=== PATIENT | male | born 1955 | race African-American/Black ===

== ENCOUNTER 2017-09-19 08:57 | Emergency (ER) | payer MEDICARE ==
[2017-09-19 10:04] LABS: #Basophils 0.1 thou/uL (0.0-0.2); #Eosinphils 0.1 thou/uL (0.0-0.7); #Lymphocytes 2.2 thou/uL (1.20-3.40); #Monocytes 0.5 thou/uL (0.11-0.59); #Neutrophils 3.9 thou/uL (1.40-6.50); %Eosinophils 1.3 % (0.0-10.0); %Lymphocytes 31.9 % (21.0-51.0); %Monocytes 7.8 % (0.0-10.0); Hemoglobin 16.4 g/dL (14.0-18.0); Mean Corpuscular HGB CONC 32.7 g/dL (32.0-36.0); Mean Corpuscular Hemoglobin 29.2 pg (27.0-31.0); Mean Corpuscular Volume 89.2 fl (80.0-94.0); Mean Platelet Volume 6.7 fL (7.4-10.4); Platelet Count 339 thou/uL (130-400); RBC Distribution Width 13.3 % (11.5-14.5); Red Blood Cell (RBC) Count 5.61 mill/uL (4.70-6.10); White Blood Cell (WBC) Count 6.8 thou/uL (4.8-10.8)
[2017-09-19 10:29] LABS: CKMB 2.1 ng/mL (0-6.6); Troponin I Less than 0.010 ng/mL (< 0.028)
[2017-09-19 11:19] LABS: ALT (SGPT) 11 U/L (8-55); AST (SGOT) 15 U/L (5-34); Albumin 4.3 g/dL (3.4-4.8); Alkaline Phosphatase 70 U/L (40-150); Anion Gap 13 mmol/L (10-20); BUN (Urea Nitrogen) 12 mg/dL (8.4-25.7); Bilirubin, Total 0.6 mg/dL (0.2-1.2); Calc. Creatinine Clearance 0 mL/min (70-130); Calcium 9.8 mg/dL (7.8-10.44); Carbon Dioxide 22 mmol/L (23-31); Chloride 106 mmol/L (98-107); Estimated GFR-MDRD Greater than 90; Globulin 3.6 g/dL (2.4-3.5); Glucose 125 mg/dL (80-115); Magnesium 2.4 mg/dL (1.6-2.6); Potassium 3.8 mmol/L (3.5-5.1); Protein, Total 7.9 g/dL (5.8-8.1); Sodium 137 mmol/L (136-145)
--- NOTE | 2017-09-19 12:02 | MRI ---
MRI LUMBAR SPINE WITHOUT CONTRAST: Date: 09/19/17 HISTORY: Low back pain radiating down left leg. FINDINGS: The vertebral body heights and marrow signal are maintained. The conus medullaris ends at L1 level. T here are facet hypertrophic changes at L4-5 and L5-S1 levels. A left paracentral disc protrusion is s een at L4-5 level causing impingement of the anterior thecal sac and the nerve root in the left later al recess. There is bilateral neural foraminal stenosis at L4-5 (left greater than right) and L5-S1 l evel (right greater than left). The paraspinal musculature is normal. IMPRESSION: 1. Lumbar spondylosis. 2. Left paracentral disc protrusion at L4-5 level causing impingement of the anterior thecal sac and the nerve root in the left lateral recess. 3. Bilateral neural foraminal stenosis at L4-5 level (left greater than right) and L5-S1 level (righ t greater than left). POS: [facility]
[2017-09-19 14:33] LABS: Bilirubin Negative (Negative); Blood, Urine Negative (Negative); Clarity CLEAR (Clear); Glucose, Urine (Dipstick) >=1000 mg/dL (Negative); Leukocyte Negative (Negative); Nitrite Negative (Negative); Protein, Urine (Dipstick) Negative (Neg-Trace); Specific Gravity, Urine 1.025 (1.002-1.036)
[2017-09-19] MEDS ORDERED: ALPRAZolam 0.5 MG TAB ONE (15:08)
== END 2017-09-19 15:16 | disposition home or self-care (01) ==
LOC: ERS 08:57
DX: M54.16 Radiculopathy, lumbar region (principal); E10.9 Type 1 diabetes mellitus without complications; E78.2 Mixed hyperlipidemia; I10 Essential (primary) hypertension; M19.90 Unspecified osteoarthritis, unspecified site; I25.10 Atherosclerotic heart disease of native coronary artery without angina pectoris; F32.9 Major depressive disorder, single episode, unspecified; F41.9 Anxiety disorder, unspecified; F43.10 Post-traumatic stress disorder, unspecified; F17.210 Nicotine dependence, cigarettes, uncomplicated; I25.2 Old myocardial infarction; G89.29 Other chronic pain; Z71.6 Tobacco abuse counseling
CPT/HCPCS: 36415; 72148; 80053; 81003; 82553; 83735; 84484; 85025; 93005; 96374; 99406; J2270

== ENCOUNTER 2017-10-01 13:44 | Day surgery (SDC) | payer MEDICARE ==
[~2017-10-01 13:44] MED LIST: ISOVUE-370 76%-LOCM 1 ML ONE
[2017-10-01] MEDS ORDERED: Ondansetron ODT 4 MG TAB ONE (14:48)
[2017-10-01 14:59] LABS: Bilirubin Negative (Negative); Blood, Urine Negative (Negative); Clarity CLEAR (Clear); Glucose, Urine (Dipstick) >=1000 mg/dL (Negative); Leukocyte Negative (Negative); Nitrite Negative (Negative); Protein, Urine (Dipstick) Negative (Neg-Trace); Specific Gravity, Urine 1.029 (1.002-1.036); pH, Urine 6.5 (5.0-9.0)
[2017-10-01] MEDS ORDERED: HYDROmorphone 0.5 MG/0.5 ML SYRINGE ONE ×2 (15:38→18:33)
[2017-10-01] MEDS ORDERED: Succinylcholine Chloride 20 MG/ML 10 ml SYRINGE FS ONE (15:41)
[2017-10-01] MEDS ORDERED: Propofol 200 MG/20 ML VIAL ONE (15:41)
[2017-10-01] MEDS ORDERED: Metoprolol Tartrate 5 MG/5 ML VIAL ONE (15:41)
[2017-10-01] MEDS ORDERED: Ondansetron HCl/PF 4 MG/2 ML Vial ONE ×2 (15:41→17:00)
[2017-10-01] MEDS ORDERED: Glycopyrrolate 0.2 MG/ML 5 ML SYRINGE ONE (15:41)
[2017-10-01] MEDS ORDERED: Ketorolac Tromethamine 30 MG/ML VIAL ONE ×2 (15:41→20:12)
[2017-10-01] MEDS ORDERED: Lidocaine 1% PF 5 ML VIAL ONE (15:41)
[2017-10-01 16:05] LABS: ALT (SGPT) 10 U/L (8-55); AST (SGOT) 12 U/L (5-34); Albumin 4.1 g/dL (3.4-4.8); Alkaline Phosphatase 66 U/L (40-150); Anion Gap 11 mmol/L (10-20); BUN (Urea Nitrogen) 9 mg/dL (8.4-25.7); Bilirubin, Total 0.4 mg/dL (0.2-1.2); Calc. Creatinine Clearance 0 mL/min (70-130); Calcium 9.5 mg/dL (7.8-10.44); Carbon Dioxide 22 mmol/L (23-31); Chloride 106 mmol/L (98-107); Estimated GFR-MDRD Greater than 90; Globulin 3.3 g/dL (2.4-3.5); Glucose 150 mg/dL (80-115); Lipase 39 U/L (8-78); Potassium 3.7 mmol/L (3.5-5.1); Protein, Total 7.4 g/dL (5.8-8.1); Sodium 135 mmol/L (136-145)
[2017-10-01 16:11] LABS: #Lymphocytes 1.2 thou/uL (1.20-3.40); #Monocytes 0.4 thou/uL (0.11-0.59); #Neutrophils 7.6 thou/uL (1.40-6.50); %Basophils 0.5 % (0.0-1.0); %Eosinophils 0.3 % (0.0-10.0); %Lymphocytes 12.5 % (21.0-51.0); %Monocytes 4.2 % (0.0-10.0); %Neutrophils 82.5 % (42.0-75.0); Mean Corpuscular HGB CONC 33.8 g/dL (32.0-36.0); Mean Corpuscular Hemoglobin 29.5 pg (27.0-31.0); Mean Corpuscular Volume 87.3 fl (80.0-94.0); Mean Platelet Volume 6.4 fL (7.4-10.4); Platelet Count 424 thou/uL (130-400); RBC Distribution Width 12.9 % (11.5-14.5); Red Blood Cell (RBC) Count 4.75 mill/uL (4.70-6.10); White Blood Cell (WBC) Count 9.2 thou/uL (4.8-10.8)
[2017-10-01 16:18] LABS: INR-International Normal Ratio 1.1; PTT 31.7 SEC (22.9-36.1); Prothrombin Time 13.8 SEC (12.0-14.7)
--- NOTE | 2017-10-01 16:18 | RAD ---
PORTABLE CHEST: 10/01/17 HISTORY: Chest pain. The lungs are clear. Heart and mediastinum are unremarkable. Postop sternotomy changes noted. Vascula r markings normal. IMPRESSION: No acute process identified. POS: [facility]
[2017-10-01 16:24] LABS: CKMB 1.3 ng/mL (0-6.6); Troponin I Less than 0.010 ng/mL (< 0.028)
[2017-10-01 16:35] LABS: Magnesium 2.2 mg/dL (1.6-2.6)
--- NOTE | 2017-10-01 17:18 | CT ---
CT ANGIO CHEST AND ABDOMEN FOLLOWING AORTOGRAM PROTOCOL WITH IV CONTRAST: 10/01/17 Multiple axial tomograms obtained through chest and abdomen with aortogram protocol with multiplanar reconstructions and 3D postprocessing. HISTORY: Abdominal pain. Assess for aortic dissection. FINDINGS: Thoracic aorta is unremarkable with no evidence of aneurysmal dilatation. No evidence of thoracic aor tic dissection. Abdominal aorta is normal caliber. There is moderate atherosclerotic changes in the abdominal aorta primarily involving the mid and distal abdominal aorta. Calcified plaque and soft plaque produces mil d luminal narrowing in the distal abdominal aorta extending to the bifurcation. No evidence of dissec tion. Diffuse atherosclerotic disease in the left common iliac artery does result in hemodynamically significant stenosis in the mid left common iliac artery (greater than 50% diameter). Lungs are well aerated. No evidence of effusion or infiltrate in the lung van. The mediastinum unremarkable. The proximal pulmonary arteries are well opacified and there is no evidence of proximal pulmonary embolus . Liver, spleen, pancreas unremarkable. Stomach is distended. The adrenal glands reveal small bilateral adrenal nodules, 1.5 cm on the right and 1.2 cm on the left . These small nodules are indeterminate on this single phase study. The kidneys are unremarkable. Small bowel loops are unremarkable as visualized. Evidence of a dilated fluid filled appendix which is incompletely imaged. Review of the aortic branches showed no evidence of stenosis at the origin of the celiac artery or santiago perior mesenteric artery. Mild atherosclerotic changes of the proximal right renal artery without significant stenosis. There is atherosclerotic changes in the proximal left renal artery. There is mild diffuse narrowing o f the mid left renal artery resulting in mild to moderate stenosis. This appears to be less than 50% diameter. IMPRESSION: 1. Atherosclerotic changes in the abdominal aorta as described above with mild luminal narrowing . No evidence of dissection. 2. Hemodynamically significant stenosis in the left common iliac artery. 3. Mild to moderate stenosis in the left mid renal artery. 4. Evidence of dilated fluid filled appendix which is incompletely imaged. See follow up CT abdo men/pelvis. 5. Bilateral adrenal nodules are seen. these are indeterminate on this single phase study. A fol lowup noncontrast abdomen CT is suggested in six months to assess stability of these small adrenal no dules. Discussed with Dr. Fierro POS: [facility]
[2017-10-01] MEDS ORDERED: Promethazine HCl 25 MG/ML VIAL ONE (17:24)
[2017-10-01] MEDS ORDERED: Piperacillin/Tazobactam 3.375 GM in Sodium Chloride 0.9% 100 ML IVPB SCH (17:30)
--- NOTE | 2017-10-01 18:12 | CT ---
CT ABDOMEN AND PELVIS WITHOUT CONTRAST: 10/01/17 Multiple axial tomograms obtained through the abdomen and pelvis without IV enhancement. HISTORY: Abdominal pain, nausea and vomiting. CT aortogram showed evidence of a dilated appendix which is incompletely evaluated. This exam is perf ormed for further evaluation. FINDINGS: Liver, spleen, pancreas, kidneys are unremarkable. Small bowel loops appear normal. There is a dilated elongated appendix identified. The appendix extends over a 10 cm length and measur es up to 17 mm. There are numerous filling defects within this dilated appendix. One of which distall y shows mild calcification density. There is no evidence of significant periappendiceal inflammation. There is no evidence of appendiceal rupture or abscess. No significant periappendiceal fluid. Colon is otherwise unremarkable. Images through the pelvis show a distended bladder which is unremark able. IMPRESSION: Dilated fluid filled elongated appendix with numerous filling defects within this enlarged appendix. No significant periappendiceal inflammation is identified. Findings discussed with Dr. Fierro. POS: [facility]
[2017-10-01] MEDS ORDERED: Bupivacaine HCl 0.5%/Epinephrine 1:200,000/PF 30 ml Vial ONE (18:37)
[2017-10-01] MEDS ORDERED: Fentanyl 100 MCG/2 ML VIAL ONE (18:44)
[2017-10-01] MEDS ORDERED: Ondansetron ODT 4 MG TAB PO PRN (19:10)
[2017-10-01] MEDS ORDERED: Promethazine HCl 25 MG/ML VIAL IM PRN (19:10)
[2017-10-01] MEDS ORDERED: HumaLOG 300 UNITS/3 ML VIAL SC PRN (19:10)
[2017-10-01] MEDS ORDERED: Ketorolac Tromethamine 30 MG/ML VIAL IVP PRN ×2 (19:10→19:15)
[2017-10-01] MEDS ORDERED: Lorazepam 2 MG/ML VIAL SLOW IVP PRN ×2 (19:10)
[2017-10-01] MEDS ORDERED: Ondansetron HCl/PF 4 MG/2 ML Vial IVP PRN ×2 (19:10)
[2017-10-01] MEDS ORDERED: Dextrose 5% in Water 1,000 ML IV PRN (19:10)
[2017-10-01] MEDS ORDERED: hydrALAZINE 20 MG/ML VIAL SLOW IVP PRN (19:10)
[2017-10-01] MEDS ORDERED: Dextrose 50% Abboject 50 ML SYRINGE SLOW IVP PRN (19:10)
[2017-10-01] MEDS ORDERED: Promethazine HCl 25 MG/ML VIAL SLOW IVP PRN (19:10)
[2017-10-01] MEDS ORDERED: Morphine 4 MG/ML Carpuject IVP PRN (19:10)
[2017-10-01] MEDS ORDERED: Acetaminophen 500 MG TAB PO PRN (19:15)
[2017-10-01] MEDS ORDERED: Acetaminophen 1,000 MG in Premix Bag 1 BAG IVPB PRN (19:15)
[2017-10-01] MEDS ORDERED: Ibuprofen 100 MG/5 ML UDCUP PO PRN (19:15)
[2017-10-01] MEDS ORDERED: traMADol HCl 50 MG TAB PO PRN (19:15)
[2017-10-01] MEDS ORDERED: Nitroglycerin 0.4 MG TAB (25 Tab Bottle) SL PRN (19:17)
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
--- NOTE | 2017-10-01 20:16 | OP ---
DATE OF PROCEDURE: 10/01/2017 PREOPERATIVE DIAGNOSIS: Acute appendicitis. POSTOPERATIVE DIAGNOSIS: Acute appendicitis. PROCEDURE PERFORMED: Laparoscopic video appendectomy. SURGEON: Kunal Villalpando M.D. ANESTHESIA: General. Local 0.5% Marcaine, 30 mL, mixed with 1% Xylocaine with epinephrine, 20 mL. PROCEDURE IN DETAIL: The patient was taken to the operating room where under general anesthesia, Fol ey catheter placed at the beginning of the procedure and removed at the end. Abdomen clipped of hair , prepared with ChloraPrep, draped in routine fashion. Local anesthetic infiltrated into skin and santiago bcutaneous tissue about each port site. Infraumbilical incision was made and pneumoperitoneum to 15 mmHg obtained with the Veress needle, replacing it with a 5 port and video laparoscope inserted. Rig ht lateral subcostal incision made and a 5 port placed. Suprapubic incision made and a [address] Appendix was very taut and distended. Mesoappendix was taken down with the LigaSure. The stump of the appendix divided with Endo-MELL blue load stapler. Stapled cecal stump was hemostatic and secu re as the appendix placed in Endobag and removed. Abdominal cavity irrigated and irrigant evacuated. Good hemostasis ensured. Irrigant and pneumoperitoneum evacuated. Suprapubic fascia approximated with 0 Vicryl UR needle. All skin incisions approximated with interrupted subdermal 4-0 Monocryl and DermaGlue applied.
[2017-10-01] MEDS: ALPRAZolam 0.5 MG TAB PO SCH (22:05)
[2017-10-01] MEDS: Famotidine 20 MG TAB PO SCH (22:05)
[2017-10-01] MEDS: Metoprolol Tartrate 100 MG TAB PO SCH (22:05)
[2017-10-01] MEDS: Lactated Ringer's 1,000 ML IV SCH (22:06)
[2017-10-01 22:55] VITALS: BMI 29.8
[2017-10-02] MEDS: traMADol HCl 50 MG TAB PO PRN ×2 (03:49→14:10)
[2017-10-02 05:16] LABS: #Lymphocytes 1.7 thou/uL (1.20-3.40); #Monocytes 0.9 thou/uL (0.11-0.59); #Neutrophils 11.1 thou/uL (1.40-6.50); %Basophils 0.3 % (0.0-1.0); %Eosinophils 0.1 % (0.0-10.0); %Lymphocytes 12.1 % (21.0-51.0); %Monocytes 6.8 % (0.0-10.0); %Neutrophils 80.7 % (42.0-75.0); Hemoglobin 13.9 g/dL (14.0-18.0); Mean Corpuscular HGB CONC 33.6 g/dL (32.0-36.0); Mean Corpuscular Hemoglobin 29.9 pg (27.0-31.0); Mean Platelet Volume 6.7 fL (7.4-10.4); Platelet Count 384 thou/uL (130-400); RBC Distribution Width 12.9 % (11.5-14.5); Red Blood Cell (RBC) Count 4.64 mill/uL (4.70-6.10); White Blood Cell (WBC) Count 13.7 thou/uL (4.8-10.8)
[2017-10-02 05:29] LABS: Anion Gap 16 mmol/L (10-20); BUN (Urea Nitrogen) 9 mg/dL (8.4-25.7); Calc. Creatinine Clearance 115 mL/min (70-130); Carbon Dioxide 22 mmol/L (23-31); Chloride 105 mmol/L (98-107); Estimated GFR-MDRD Greater than 90; Glucose 68 mg/dL (80-115); Potassium 4.1 mmol/L (3.5-5.1); Sodium 139 mmol/L (136-145)
[2017-10-02] MEDS: Lactated Ringer's 1,000 ML IV SCH (06:56)
[2017-10-02] MEDS: ALPRAZolam 0.5 MG TAB PO SCH ×2 (06:57→14:10)
[2017-10-02] MEDS ORDERED: Amlodipine 5 MG TAB PO SCH (09:00)
[2017-10-02] MEDS ORDERED: Clopidogrel Bisulfate 75 MG TAB PO SCH (09:00)
[2017-10-02] MEDS ORDERED: Enoxaparin Sodium 40 MG/0.4 ML SYRINGE SC SCH (09:00)
[2017-10-02] MEDS ORDERED: Polyethylene Glycol 3350 17 GM Packet PO SCH (09:00)
[2017-10-02] MEDS ORDERED: Lisinopril 20 MG TAB PO SCH (09:00)
[2017-10-02] MEDS ORDERED: Isosorbide Mononitrate 20 MG TAB PO SCH (09:00)
[2017-10-02] MEDS: Famotidine 20 MG TAB PO SCH (09:01)
[2017-10-02] MEDS: Metoprolol Tartrate 100 MG TAB PO SCH (09:01)
[2017-10-02] MEDS ORDERED: Ibuprofen 600 MG TAB PO PRN (10:19)
[2017-10-02 12:28] VITALS: TEMP 97.9
--- NOTE | 2017-10-02 17:00 | PRG ---
DATE OF SERVICE: 10/02/2017 SUBJECTIVE: Wong Cruz is doing well today. He was kept overnight because of lack of transport ation home and fetch a large appendicitis. Overnight, he has done well. He is afebrile. He is tole rating his diet. OBJECTIVE: LUNGS: Clear to auscultation. CARDIAC: Regular rate and rhythm without murmur or gallop. ABDOMEN: Soft, nontender, no masses. Surgical wounds look good. ASSESSMENT AND PLAN: Doing well post laparoscopic appendectomy. Plan to discharge home today. Tyle nol, ibuprofen and Motrin as needed for pain. Follow up in my office in 2-3 weeks. Diet and activit y as tolerated.
[2017-10-02 17:06] VITALS: BP 109/70
--- NOTE | 2017-10-02 21:38 | DIS ---
DATE OF ADMISSION: 10/01/2017 DATE OF DISCHARGE: 10/02/2017 DISCHARGE DIAGNOSES: Acute appendicitis, lack of transportation home. HISTORY: A 61-year-old male presenting with lower abdominal pain, presented in the emergency room. CAT scan and exam shows appendicitis, again intravenous fluids, antibiotics and laparoscopic appendec moise performed at the late hour. Though we perform this, he did not have transportation home. He wa s kept overnight. He has been discharged home today after being observed overnight. His CBC and bas e met are normal. He will be discharged home to resume his home medications. Follow up in my office in 2-3 weeks.
== END 2017-10-02 16:55 | disposition home or self-care (01) ==
LOC: ERS 13:44 → SDC/OP 19:07 → SURG B 20:21 → SDC/OP 10-02 16:55
PROVIDERS: ATTEND Specialist
PROC: 0DTJ4ZZ Resection of Appendix, Percutaneous Endoscopic Approach (ICD-10-PCS; principal; 2017-10-01)
DX: K35.80 Unspecified acute appendicitis (principal); F17.210 Nicotine dependence, cigarettes, uncomplicated; I10 Essential (primary) hypertension; E11.9 Type 2 diabetes mellitus without complications; F43.10 Post-traumatic stress disorder, unspecified; Z95.1 Presence of aortocoronary bypass graft; Z88.8 Allergy status to other drugs, medicaments and biological substances; Z98.890 Other specified postprocedural states
CPT/HCPCS: 36415; 36416; 71045; 71275; 74176; 80048; 80053; 81003; 82553; 83605; 83690; 83735; 84484; 85025; 85610; 85730; 86850; 86900; 86901; 87040; 87086; 93005; 96361; 96374; 96375; 96376; 99406; J0131; J0670; J1170; J1650; J1885; J2001; J2405; J2543; J2550; J2704; J3010; J7050; Q0162

== ENCOUNTER 2018-07-17 10:35 | Emergency (ER) | payer MEDICARE ==
[2018-07-17] MEDS ORDERED: HYDROcodone/Acetaminophen 10/325 mg Tablet ONE (11:36)
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
[2018-07-17] MEDS ORDERED: ALPRAZolam 0.25 MG TAB ONE (13:22)
== END 2018-07-17 13:29 | disposition home or self-care (01) ==
LOC: ERS 10:35
DX: S16.1XXA Strain of muscle, fascia and tendon at neck level, initial encounter (principal); S39.012A Strain of muscle, fascia and tendon of lower back, initial encounter; F41.9 Anxiety disorder, unspecified; F43.10 Post-traumatic stress disorder, unspecified; I25.2 Old myocardial infarction; F17.210 Nicotine dependence, cigarettes, uncomplicated; E10.9 Type 1 diabetes mellitus without complications; E78.1 Pure hyperglyceridemia; F32.9 Major depressive disorder, single episode, unspecified; Z79.82 Long term (current) use of aspirin; Z79.891 Long term (current) use of opiate analgesic; V43.62XA Car passenger injured in collision with other type car in traffic accident, initial encounter
CPT/HCPCS: 70450; 72125; 72128; 72131; 99406

== ENCOUNTER 2020-07-05 02:59 | Inpatient (IN) | payer MEDICARE ==
[2020-07-05 03:44] VITALS: BMI 28.3
[2020-07-05] MEDS ORDERED: Acetaminophen 650 MG Suppository PR PRN (05:19)
[2020-07-05] MEDS ORDERED: Acetaminophen 325 MG TAB PO PRN (05:19)
[2020-07-05] MEDS ORDERED: Ondansetron ODT 4 MG TAB PO PRN (05:19)
[2020-07-05] MEDS ORDERED: Nitroglycerin 0.4 MG TAB (25 Tab Bottle) SL PRN (05:19)
[2020-07-05] MEDS ORDERED: Ondansetron PF 4 MG/2 ML Vial IVP PRN (05:19)
[2020-07-05] MEDS ORDERED: Calcium Carbonate 500 MG ChewTAB PO PRN (05:19)
--- NOTE | 2020-07-05 05:27 | PDOC.HHP ---
Hospitalist HPI - History of Present Illness chest pain History of Present Illness: Case of an 64y/o male with pmhx of cad s/p cabg x6, htn DM, hld ptsd and chronic back pain who comes to hospital transfer [facility] due to chest pain. patient states he was on his usual states of health until today when he was watching tv and started with restrosternal chest pain, pain described as stabbing 8/10 non radiating associated with palpitation diaphoresis and sob for which he went to hospital for evaluation due to increased heart score, cardiac hx and multiple risk factors patient was sent for further evaluation. patients pain is atypical refers worse with movement and somewhat reproducible to palpati on. patient has a hx of panic attacks secondary to ptsd and recently has been worried with [facility]. patient does reports pain did improve with the application of nitro patch Hospitalist ROS - Review of Systems All other systems reviewed; all pertinent +/- noted in HPI/Subj Hospitalist History - Past Surgical History Past Surgical History: reports: CABG - Family History Family History: reports: diabetes mellitus, hyperlipidemia, hypertension - Social History Smoking Status: Current every day smoker Alcohol: reports: None Drugs: reports: none - Exam General Appearance: NAD, awake alert Eye: PERRL, anicteric sclera ENT: normocephalic atraumatic, no oropharyngeal lesions Neck: supple, symmetric, no JVD Heart: RRR, no murmur, no gallops Respiratory: CTAB, no wheezes, no rales, no ronchi Gastrointestinal: soft, non-tender, non-distended, normal bowel sounds Extremities: no cyanosis, no clubbing, no edema Skin: normal turgor, no lesions, no rashes Neurological: cranial nerve grossly intact, normal sensation to touch, no weakness Musculoskeletal: normal tone, normal strength, no muscle wasting Psychiatric: normal affect, normal behavior, A&O x 3 Hospitalist H&P A/P - Problem (1) Chest pain Code(s): R07.9 - CHEST PAIN, UNSPECIFIED Status: Acute (2) Diabetes Code(s): E11.9 - TYPE 2 DIABETES MELLITUS WITHOUT COMPLICATIONS Status: Acute (3) HTN (hypertension) Code(s): I10 - ESSENTIAL (PRIMARY) HYPERTENSION Status: Acute (4) HLD (hyperlipidemia) Code(s): E78.5 - HYPERLIPIDEMIA, UNSPECIFIED Status: Acute (5) PTSD (post-traumatic stress disorder) Code(s): F43.10 - POST-TRAUMATIC STRESS DISORDER, UNSPECIFIED Status: Acute - Plan Plan: 64y/o male with the stated pmhx who presents with chest pain chest pain - pt with extensive heart disease - multiple risk factors - ekg with q waves and tachycardia, no st ischemic changes - cxr cardiac silhouette WNL - initial troponin negative, will trend - 2d echo - cardio eval - on optimal cad medication with statin, acei, beta ivan and dual antiplat elets w asa+ plavix dm acc+ss htn / hld - continue home meds for chronic conditions
[2020-07-05] MEDS ORDERED: Dextrose 5% in Water 1,000 ML IV PRN (05:36)
[2020-07-05] MEDS ORDERED: HumaLOG 300 UNITS/3 ML VIAL SC PRN (05:36)
[2020-07-05] MEDS ORDERED: Dextrose 50% Abboject 50 ML SYRINGE SLOW IVP PRN (05:36)
[2020-07-05 07:25] LABS: Troponin I 0.011 ng/mL (< 0.028)
[2020-07-05] MEDS: Clopidogrel Bisulfate 75 MG TAB PO SCH (08:10)
[2020-07-05] MEDS: Aspirin Chewable 81 MG TAB PO SCH (08:10)
[2020-07-05] MEDS: Atorvastatin Calcium 40 MG TAB PO SCH (08:11)
[2020-07-05] MEDS: Enoxaparin Sodium 40 MG/0.4 ML SYRINGE SC SCH (08:11)
[2020-07-05] MEDS ORDERED: Lisinopril 5 MG TAB PO SCH (09:00)
[2020-07-05] MEDS ORDERED: Metoprolol Tartrate 25 MG TAB PO SCH ×2 (09:00→10:00)
--- NOTE | 2020-07-05 10:59 | CON ---
DATE OF CONSULTATION: 07/05/2020 INDICATION FOR CONSULTATION: A 64-year-old patient with history of three-vessel bypass surgery in 2013 and also stents prior to that, who was admitted with chest pain. HISTORY OF PRESENT ILLNESS: This is a very pleasant 64-year-old gentleman, who underwent bypass surgery with three-vessel bypass with a saphenous vein graft to diagonal, obtuse marginal branch, and posterior descending artery in 2013. Previous to that in 2012, he underwent angioplasty and stent placement to the right coronary artery and to the left anterior descending artery by Dr. Fagan. He said his cardiac problems started back in 1998, at which time he said he had his 1st myocardial infarction. He said since that time he has had two to three different myocardial infarctions. He had been doing relatively well. He has been seen in the office on followup. Most recently, he was seen in the office in February of 2020. It does not appear that he has had any echocardiograms or cardiac stress test since his bypass surgery and had been doing relatively well until about 6 months ago when he notes he has been started having some difficulties. First he notes, he has some difficulties in walking, which he has had for more than 10 years, but seems to be getting worse, where he said he feels like his legs just give way, but on evening he said he was at home and started developing chest pressure which was associated with some diaphoresis, shortness of breath, and lightheadedness. He did not have any nitroglycerin to take. Eventually, he went to the emergency room in [place]. He then was transferred by ambulance to [facility]. He said in the ambulance, he was given nitroglycerin. He stated in the emergency room in [place], he was given Xanax. When he arrived here, he said he was still having chest discomfort, was on a direct admit to the floor. When he arrived here, shortly thereafter, eventually his pain just resolved. His cardiac enzymes are negative for myocardial infarction. EKG does not show any acute ST-segment changes and he has had no further pain since being admitted to the hospital. On his previous cardiac catheterization prior to undergoing bypass surgery, it was stated that he did have a 30% in-stent restenoses of the left anterior descending artery, but no bypass surgery was performed on this vessel either by saphenous vein graft or left internal mammary artery. PAST MEDICAL HISTORY: Significant for coronary artery disease as noted above, history of peripheral vascular disease. He has significant iliac disease noted in the past and was advised to undergo arteriograms or Doppler evaluation. This has not yet been performed apparently. He also has a history of post traumatic stress syndrome. He has anxiety, has hypercholesterolemia, hypertension, has had a history of hypercholesterolemia, and tobacco abuse. SOCIAL HISTORY: He continues to smoke cigarettes about six a day. He denies any significant alcohol use or illicit drug use. ALLERGIES: NONE. MEDICATIONS: Prior to admission included; 1. Aspirin 81 mg a day. 2. Imipramine. 3. Lipitor 40 mg a day. 4. Plavix 75 mg. 5. Potassium daily. 6. Colchicine 0.6 mg b.i.d. 7. Xanax. 8. Lisinopril 5 mg a day. 9. Metoprolol 25 mg b.i.d. 10. [place]. REVIEW OF SYSTEMS: A 12-point review of systems is positive for the lower extremity pains and numbness and also weakness. He also says he has occasional edema in the lower extremities. He complains his fingers tingle. He wears glasses. He denied any other GI complaints. No pulmonary complaints. No history of seizures or syncope. FAMILY HISTORY: Positive for coronary artery disease in his father and grandfather who had myocardial infarction in their 60s. There is also some history of diabetes, hyperlipidemia, and hypertension. PHYSICAL EXAMINATION: GENERAL: Reveals a well-developed, well-nourished gentleman, who is in no acute distress at this time. He is alert, he is oriented. VITAL SIGNS: Show a blood pressure of 160/79, heart rate is 90 and shows a sinus rhythm. He is afebrile. Respiratory rate 16. HEENT: Shows the head to be normocephalic and atraumatic. Carotid pulses are present. He has bilateral carotid bruits. CHEST: Relatively clear to auscultation. He did have some very minimal late expiratory wheezing, but no rales or rhonchi were appreciated. CARDIOVASCULAR: He has a regular rate and rhythm. There were no gross murmurs, heaves, thrills, bruits, or rubs noted. He has a well-healed midline surgical incision after median sternotomy. He has multiple scars from previous what appears to be lacerations on the chest and arm areas. ABDOMEN: Soft and nontender. Positive bowel sounds are present. He has iliac bruits noted. EXTREMITIES: Femoral pulses are very difficult to palpate, but he also has femoral bruits. I cannot palpate pulses in the lower extremities. His feet are warm however. There is no gross cyanosis noted and there is no lower extremity edema. NEUROLOGIC: The patient appears to be fully intact. There are no gross focal motor deficits noted. He appears to have normal strength and normal tone. DIAGNOSTIC STUDIES: EKG shows a normal sinus rhythm with no acute changes. LABORATORY DATA: Shows a sodium of 139, potassium 3.6, and BUN was 8 with a creatinine of 1.35. WBC was 8, hemoglobin was 15.6, and platelet count was 295,000. Also note his blood sugar was 103. Urinalysis showed 2+ bacteria. Cardiac enzymes were negative x3. IMPRESSION: 1. A 64-year-old gentleman with most likely acute coronary syndrome with no EKG changes or enzyme changes. Would advise he undergo stress testing for further evaluation since he has had no stress test in the last 5 years since bypass surgery. If the stress test is positive, he will need to undergo further evaluation by cardiac catheterization. 2. Peripheral vascular disease. He has diffused peripheral vascular disease. He continues to smoke. However, at some point in time, he will need to undergo arteriograms or should he need a cardiac catheterization, perhaps he can have an arteriogram performed at the same time. 3. Mild renal insufficiency with a creatinine of 1.35. This appears to be stable. 4. History of hypertension. The blood pressure is elevated at 160/79, his heart rate was 91. Based on this, we will increase the patient's beta blockers to 50 mg b.i.d. rather than 25. We will try to maximize his medications. 5. History of hypercholesterolemia. We will continue on statin medications we can obtain a cholesterol level if one has not been done in the last year. 6. History of tobacco abuse. He was strongly encouraged to stop smoking. 7. History of anxiety. He has been treated with Xanax. He will continue to be treated by the primary care service. At this time, we will order a stress test and will proceed based on the recommendations. He has also had an echocardiogram performed. We will evaluate and further recommendations may depend on the results of the echocardiogram as well as the stress test. Job ID: [id number]
[2020-07-05] MEDS: HYDROcodone/Acetaminophen 5/325 mg Tablet PO PRN ×2 (13:10→20:14)
[2020-07-05] MEDS: Metoprolol Tartrate 25 MG TAB PO SCH (20:15)
[2020-07-05] MEDS ORDERED: FLU VACC QS2020-21(65YR UP)/PF 240 MCG/0.7 ML SYRINGE IM ONE (21:00)
[2020-07-06] MEDS: HYDROcodone/Acetaminophen 5/325 mg Tablet PO PRN ×2 (04:44→10:30)
[2020-07-06] MEDS ORDERED: hydrALAZINE 20 MG/ML VIAL SLOW IVP SCH (04:45)
[2020-07-06 05:09] LABS: Cardiac Risk 3.4 (Less than 4.5)
--- NOTE | 2020-07-06 10:03 | PDOC.CPN ---
- Subjective Date: 07/06/20 Time: 09:15 Interval history: No overnight events, patient doing well this morning, he states that he is feeling better, he is getting his stress test this morning, he tolerated it well. He denies any chest pain or shortness of breath overnight or this morning. - Review of Systems General: denies: fever/chills, weight/appetite/sleep changes, night sweats, fatigue Respiratory: denies: cough, congestion, shortness of breath, exercise intolerance Cardiovascular: denies: chest pain, palpitation, edema, paroxysmal nocturnal dyspnea, orthopnea Gastrointestinal: denies: nausea, vomiting, diarrhea, constipation, abd pain, GI bleeding Musculoskeletal: denies: pain, tenderness, stiffness, swelling, arthritis/arthralgias Neurological: denies: numbness, syncope, seizure, weakness - Objective Allergies/Adverse Reactions: Allergies Allergy/AdvReac Type Severity Reaction Status Date / Time Corticosteroids AdvReac Intermediate Verified 07/05/20 03:38 (Glucocorticoids) Visit Medications: Current Medications Acetaminophen (Acetaminophen 650 Mg Suppository) 650 mg GA Q4H PRN PRN Reason: Headache/Fever/Mild Pain (1-3) Acetaminophen (Acetaminophen 325 Mg Tab) 650 mg PO Q4H PRN PRN Reason: Headache/Fever/Mild Pain (1-3) Hydrocodone Bitart/Acetaminophen (Hydrocodone/Acetaminophen 5/325 Mg Tablet) 1 tab PO Q4H PRN PRN Reason: Moderate Pain (4-6) Hydrocodone Bitart/Acetaminophen (Hydrocodone/Acetaminophen 5/325 Mg Tablet) 2 tab PO Q4H PRN PRN Reason: Severe Pain (7-10) Last Admin: 07/06/20 04:44 Dose: 2 tab Documented by: Aspirin (Aspirin Chewable 81 Mg Tab) 81 mg PO DAILY [facility] Last Admin: 07/05/20 08:10 Dose: 81 mg Documented by: Atorvastatin Calcium (Atorvastatin Calcium 40 Mg Tab) 40 mg PO DAILY [facility] Last Admin: 07/05/20 08:11 Dose: 40 mg Documented by: Calcium Carbonate (Calcium Carbonate 500 Mg Chewtab) 1,000 mg PO Q4H PRN PRN Reason: Heartburn or Indigestion Clopidogrel Bisulfate (Clopidogrel Bisulfate 75 Mg Tab) 75 mg PO DAILY [facility] Last Admin: 07/05/20 08:10 Dose: 75 mg Documented by: Dextrose/Water (Dextrose 50% Abboject 50 Ml Syringe) 25 gm SLOW IVP PRN PRN PRN Reason: Hypoglycemia Enoxaparin Sodium (Enoxaparin Sodium 40 Mg/0.4 Ml Syringe) 40 mg SC 0900 [facility] Last Admin: 07/05/20 08:11 Dose: 40 mg Documented by: Glucagon (Glucagon 1 Mg/Ml Vial) 1 mg IM PRN PRN PRN Reason: Hypoglycemia Dextrose/Water (D5w) 1,000 mls @ 0 mls/hr IV .Q0M PRN PRN Reason: Hypoglycemia Insulin Human Lispro (Humalog 300 Units/3 Ml Vial) 0 units SC .MILD SLIDING SCALE PRN PRN Reason: Mild Correctional Scale Metoprolol Tartrate (Metoprolol Tartrate 25 Mg Tab) 50 mg PO Q12HR [facility] Last Admin: 07/05/20 20:15 Dose: 50 mg Documented by: Nitroglycerin (Nitroglycerin 0.4 Mg Tab (25 Tab Bottle)) 0.4 mg SL Q5MIN PRN PRN Reason: Chest Pain Ondansetron HCl (Ondansetron Odt 4 Mg Tab) 4 mg PO Q6H PRN PRN Reason: Nausea/Vomiting Ondansetron HCl (Ondansetron Pf 4 Mg/2 Ml Vial) 4 mg IVP Q6H PRN PRN Reason: Nausea/Vomiting Vital Signs & Weight: Vital Signs Temp Pulse Resp BP Pulse Ox 07/06/20 07:44 98.4 F 73 18 140/66 95 07/06/20 06:17 72 139/64 07/06/20 04:00 98 F 71 16 180/79 H 98 07/06/20 01:21 99 Weight 193 lb 9.6 oz - Quality Measures Condition: Coronary Artery Disease CV meds: Beta Indra: Yes, Statin: Yes, ASA: Yes, Plavix/Effient/Brilinta: Yes - Labs Troponin/CKMB Troponin I 0.010 ng/mL (< 0.028) 07/05/20 10:21 - EKG Interpretation EKG Method: Telemetry EKG: sinus rhythm (HR 70's) - Assessment/Plan Assessment/Plan: 1; Likely acute coronary syndrome with no EKG changes or enzyme changes. Stress test this morning, we will await nuclear imaging. ECHO 07/05/2020 showed EF 45- 50%, suggestive of diastolic dysfunction, mild mitral regurgitation and trace tricuspid regurgitation. Based on results of stress test, we may need to proceed with cardiac catheterization 2. Peripheral vascular disease (PVD), he has diffuse PVD and continues to smoke 6 cigarets/ day, he is trying to stop. Long discussion with patient about smoking cessation. If he undergoes cardiac catheterization, he can have arteriogram performed at the same time. 3. Mild renal insufficiency Creatinine is 1.35, appears to be stable 4. History of hypertension: BP has been elevated during hospital stay, we increased Metoprolol yesterday, I will add Hydralazine d/t increased creatinine levels. We will maximize medications. 5. History of hypercholesterolemia. Fasting lipids this morning showed a LDL of 44. Well controlled. We will continue his Lipitor 40 mg PO 6. History of tobacco abuse: he continues to smoke 6 cigarets/day. Long discussion with patient about smoking cessation. 7. History of anxiety. He has been treated with Xanax, care provided by Primary care services for anxiety control. Stress test has been ordered, awaiting results at this time. Pt. seen and eval. by me. The stress test is negative for ischemia. he was scheduled for an arterial doppler eval. as an outpt. but failed to show for the study. due to his severe PVD, I will order the study while the pt. is here. I agree with the A/P by the RADIATION PROTECTION TECHNICIAN. esperanza
[2020-07-06] MEDS: Aspirin Chewable 81 MG TAB PO SCH (10:29)
[2020-07-06] MEDS: Clopidogrel Bisulfate 75 MG TAB PO SCH (10:29)
[2020-07-06] MEDS: Metoprolol Tartrate 25 MG TAB PO SCH ×2 (10:29→20:30)
[2020-07-06] MEDS ORDERED: hydrALAZINE 25 MG TAB PO SCH ×2 (10:30→21:00)
[2020-07-06] MEDS: Atorvastatin Calcium 40 MG TAB PO SCH (10:30)
[2020-07-06] MEDS: Enoxaparin Sodium 40 MG/0.4 ML SYRINGE SC SCH (10:30)
[2020-07-06 10:56] LABS: SARS-CoV-2 MS2 Positive; SARS-CoV-2 N Gene Negative; SARS-CoV-2 S Gene Negative; SARS-CoV-2 by NAA Not Detected (NotDetected); SARS-CoV-2 orf1ab Negative
[2020-07-06] MEDS ORDERED: ADENOSINE 60 MG/20 ML VIAL ONE (11:03)
--- NOTE | 2020-07-06 11:07 | NM ---
CARDIAC SPECT: CLINICAL HISTORY: 64-year-old male with chest pain, coronary artery disease, CABG, hypertension, diabetes, palpitations , shortness of breath, and smoker. TECHNIQUE: A myocardial perfusion scan was performed using the single isotope one day protocol with technetium-9 9m sestamibi. 10 mCi were injected intravenously for the rest exam followed by 31 mCi for the stress exam. Pharmacologic stress with Adenosine was monitored and interpreted by Dr. Blankenship. FINDINGS: There is a fixed defect in the inferolateral wall. No reversible defects are identified. GATED SPECT LVEF: 61%. WALL MOTION EXAM: Mild inferolateral wall hypokinesis. IMPRESSION: 1. No evidence of reversible ischemia. 2. Inferolateral wall scar. POS: TORO
[2020-07-06 12:23] LABS: SARS-CoV-2 IgG Ab Non-Reactive (NonReactive); SARS-CoV-2 IgG Index 0.01 S/CO (< 1.40)
[2020-07-06] MEDS: HYDROcodone/Acetaminophen 10/325 mg Tablet PO SCH ×2 (15:02→20:30)
--- NOTE | 2020-07-06 17:02 | PDOC.HOSPP ---
- Subjective Encounter Date: 07/06/20 Encounter Time: 12:30 Subjective: Patient up in bed complains of lower back pain. He also states that he has been having some tingling sensation on his right below the knee. He states that this tingling sensation started about 2 or 3 days ago. He has a history of back pain. - Objective Vital Signs & Weight: Vital Signs (12 hours) Temp Pulse Resp BP BP Pulse Ox 07/06/20 15:01 98.3 F 78 16 138/69 97 07/06/20 11:31 98.0 F 77 16 130/65 95 07/06/20 07:44 98.4 F 73 18 140/66 95 07/06/20 06:17 72 139/64 Weight Weight 193 lb 9.6 oz I&O: 07/05/20 07/06/20 07/07/20 06:59 06:59 06:59 Intake Total 820 Output Total 225 1650 Balance -225 -830 Additional Labs: Accuchecks 07/06/20 07/06/20 07/05/20 11:03 05:33 20:42 POC Glucose 117 H 97 107 H 07/05/20 17:04 POC Glucose 106 H Hospitalist ROS - Review of Systems Respiratory: denies: cough, dry, shortness of breath, hemoptysis, SOB with excertion, pleuritic pain, sputum, wheezing, other Gastrointestinal: denies: nausea, vomiting, abdominal pain, diarrhea, constipation, melena, hematochezia, other Genitourinary: denies: dysuria, frequency, incontinence, hematuria, retention, other Musculoskeletal: reports: other (Back pain) - Medication Medications: Active Medications Generic Name Dose Route Start Last Admin Trade Name Freq PRN Reason Stop Dose Admin Hydrocodone Bitart/Acetaminophen 2 tab 07/05/20 05:19 07/06/20 10:30 Hydrocodone/Acetaminophen 5/325 Mg Tablet PO 2 tab Q4H PRN Administration Severe Pain (7-10) Hydrocodone Bitart/Acetaminophen 1 tab 07/06/20 15:00 07/06/20 15:02 Hydrocodone/Acetaminophen 10/325 Mg Tablet PO 1 tab TID YOU Administration Aspirin 81 mg 07/05/20 09:00 07/06/20 10:29 Aspirin Chewable 81 Mg Tab PO 81 mg DAILY YOU Administration Atorvastatin Calcium 40 mg 07/05/20 09:00 07/06/20 10:30 Atorvastatin Calcium 40 Mg Tab PO 40 mg DAILY YOU Administration Clopidogrel Bisulfate 75 mg 07/05/20 09:00 07/06/20 10:29 Clopidogrel Bisulfate 75 Mg Tab PO 75 mg DAILY YOU Administration Enoxaparin Sodium 40 mg 07/05/20 09:00 07/06/20 10:30 Enoxaparin Sodium 40 Mg/0.4 Ml Syringe SC 40 mg 0900 YOU Administration Metoprolol Tartrate 50 mg 07/05/20 21:00 07/06/20 10:29 Metoprolol Tartrate 25 Mg Tab PO 50 mg Q12HR YOU Administration - Exam Neck: negative: supple, symmetric, no JVD, no thyromegaly, no lymphadenopathy, no carotid bruit, JVD Heart: negative: RRR, no murmur, no gallops, no rubs, normal peripheral pulses, irregular, diminshed peripheral pulses, murmur present, II/IV, III/IV Respiratory: negative: CTAB, no wheezes, no rales, no ronchi, normal chest expansion, no tachypnea, normal percussion, rales, rhonchi, tachypneic, wheezes Gastrointestinal: negative: soft, non-tender, non-distended, normal bowel sounds, no palpable masses, no hepatomegaly, no splenomegaly, no bruit, no guarding, no rigidity, tender to palpation, distended, diminished bowl sounds, voluntary guarding Musculoskeletal - other findings: Pain upon palpation of the lumbar spine and paraspinal area Hosp A/P (1) Chest pain Code(s): R07.9 - CHEST PAIN, UNSPECIFIED Status: Acute (2) Lower back pain Code(s): M54.5 - LOW BACK PAIN Status: Acute (3) Numbness and tingling of right lower extremity Code(s): R20.0 - ANESTHESIA OF SKIN; R20.2 - PARESTHESIA OF SKIN Status: Acute (4) Diabetes Code(s): E11.9 - TYPE 2 DIABETES MELLITUS WITHOUT COMPLICATIONS Status: Acute (5) HLD (hyperlipidemia) Code(s): E78.5 - HYPERLIPIDEMIA, UNSPECIFIED Status: Acute (6) HTN (hypertension) Code(s): I10 - ESSENTIAL (PRIMARY) HYPERTENSION Status: Acute - Plan We will get MRI of lower back since patient has spinal and paraspinal tenderness and he started having tingling to his right lower leg. He also states that his right lower extremity has been giving out. Stress test pending results. We will continue current medications. Echo EF of 45 to 50%.
[2020-07-06] MEDS: Colchicine 0.6 MG TAB PO SCH (20:29)
[2020-07-06] MEDS: Lisinopril 20 MG TAB PO SCH (20:29)
[2020-07-06] MEDS: ALPRAZolam 1 MG TAB PO SCH (20:29)
[2020-07-07 05:07] LABS: Eosinophils 1 % (0-10); Hemoglobin 14.2 g/dL (14.0-18.0); Lymphocytes 64 % (21-51); MDiff Complete? YES; Mean Corpuscular HGB CONC 32.6 g/dL (32.0-36.0); Mean Corpuscular Hemoglobin 28.7 pg (27.0-31.0); Mean Corpuscular Volume 88.1 fL (78.0-98.0); Mean Platelet Volume 7.4 fL (7.4-10.4); Monocytes 8 % (0-10); Neutrophil 27 % (42-75); Platelet Count 295 thou/uL (130-400); Platelet Morphology Comment Appears Adequate; RBC Distribution Width 12.6 % (11.5-14.5); Red Blood Cell (RBC) Count 4.95 mill/uL (4.70-6.10); White Blood Cell (WBC) Count 7.3 thou/uL (4.8-10.8)
[2020-07-07 05:10] LABS: ALT (SGPT) 11 U/L (8-55); AST (SGOT) 18 U/L (5-34); Albumin 3.9 g/dL (3.4-4.8); Alkaline Phosphatase 60 U/L (40-110); Anion Gap 12 mmol/L (10-20); BUN (Urea Nitrogen) 14 mg/dL (8.4-25.7); Bilirubin, Total 0.5 mg/dL (0.2-1.2); Calc. Creatinine Clearance 80 mL/min (70-130); Calcium 9.1 mg/dL (7.8-10.44); Carbon Dioxide 22 mmol/L (23-31); Chloride 105 mmol/L (98-107); Globulin 3.2 g/dL (2.4-3.5); Glucose 91 mg/dL (80-115); Potassium 3.9 mmol/L (3.5-5.1); Protein, Total 7.1 g/dL (5.8-8.1); Sodium 135 mmol/L (136-145)
[2020-07-07] MEDS ORDERED: hydrALAZINE 25 MG TAB PO SCH (09:00)
[2020-07-07] MEDS: Colchicine 0.6 MG TAB PO SCH ×2 (09:08→21:28)
[2020-07-07] MEDS: Lisinopril 20 MG TAB PO SCH ×2 (09:08→21:27)
[2020-07-07] MEDS: Metoprolol Tartrate 25 MG TAB PO SCH ×2 (09:08→21:27)
[2020-07-07] MEDS: Aspirin Chewable 81 MG TAB PO SCH (09:08)
[2020-07-07] MEDS: Clopidogrel Bisulfate 75 MG TAB PO SCH ×2 (09:08→10:19)
[2020-07-07] MEDS: Potassium Chloride 10 MEQ TAB PO SCH (09:09)
[2020-07-07] MEDS: HYDROcodone/Acetaminophen 10/325 mg Tablet PO SCH ×3 (09:09→21:28)
[2020-07-07] MEDS: Atorvastatin Calcium 40 MG TAB PO SCH (09:10)
[2020-07-07] MEDS: Enoxaparin Sodium 40 MG/0.4 ML SYRINGE SC SCH (09:10)
[2020-07-07] MEDS ORDERED: Iopamidol 370 76% 100 ML VIAL ONE (10:10)
--- NOTE | 2020-07-07 10:18 | MRI ---
MRI LUMBAR SPINE WITHOUT CONTRAST: INDICATION: Low back pain. Lower extremity pain. COMPARISON: Comparison is made to an MRI of the lumbar spine dated 09/19/2017. FINDINGS: Lumbar vertebrae maintain normal height and alignment. Vertebral body signal is preserved. There ar e degenerative changes. Anterior osteophytes are again noted. The disk spaces are preserved. Incre ased T2 signal within the L4-5 disk is stable in appearance from the prior study. L1-2: No significant disk bulge. Mild facet hypertrophy. No central canal or foraminal stenosis. L2-3: No significant disk bulge. Moderate facet and ligamentous hypertrophy of the posterior epidur al fat. Very mild central canal stenosis, stable from prior exam. L3-4: Mild diffuse disk bulge flattens the thecal sac. Moderate facet and ligamentous hypertrophy. Posterior epidural fat. These changes produce mild to moderate central canal stenosis which is stab le from prior exam. L4-5: Broad-based disk bulge. A focal disk protrusion paracentrally on the left is again seen. Thi s was described on the prior study. There is moderate facet and ligamentous hypertrophy in the poste rior epidural fat. These changes compress the thecal sac resulting in moderate central canal stenosi s. There is bilateral foraminal stenosis at this level more severe on the left due to the asymmetric disk protrusion with foraminal zone extension. L5-S1: Broad-based disk bulge. Moderate facet hypertrophy. No significnat central canal stenosis. Bilateral foraminal stenosis more severe on the right which has a similar appearance to the prior st udy. IMPRESSION: 1. Disk protrusion at L4-5 with asymmetric protrusion on the left resulting in central canal and for aminal stenosis again noted. 2. Bilateral foraminal stenosis at L5-S1 is again noted as above. POS: OFF
[2020-07-07] MEDS ORDERED: Amlodipine 5 MG TAB PO SCH (11:15)
[2020-07-07] MEDS ORDERED: Sodium Chloride 0.9% 500 ML IV SCH (11:15)
--- NOTE | 2020-07-07 11:28 | PRG ---
DATE OF SERVICE: 07/07/2020 SUBJECTIVE: Mr. Cruz is not reporting any chest pain or pressure. OBJECTIVE: VITAL SIGNS: His blood pressure is 149/69, pulse 70. LUNGS: Clear. CARDIAC: Normal S1, normal S2. EXTREMITIES: I do not feel any peripheral pulses. DIAGNOSTIC STUDIES: Stress test revealed a fixed defect, inferior wall old infarct, compatible with his previous history of an infarct many years ago. ASSESSMENT: 1. No stress induced ischemia. 2. Hypertension. 3. Smoking. 4. Hypercholesterolemia. 5. Severe peripheral vascular disease. PLAN: 1. Go ahead and do CT angiogram of his lower extremities. 2. Add amlodipine. 3. From a cardiac standpoint, maybe able to go home later today. Job ID: [id number]
[2020-07-07] MEDS: HYDROcodone/Acetaminophen 5/325 mg Tablet PO PRN ×2 (13:29→17:53)
--- NOTE | 2020-07-07 15:00 | CT ---
CT ANGIOGRAM OF ABDOMEN AND PELVIS AND BILATERAL LOWER EXTREMITIES WITH IV CONTRAST AND 3D MIP RECONS TRUCTIONS: PROVIDED CLINICAL HISTORY: Peripheral vascular disease. FINDINGS: The visualized lung bases are free of significant opacity. The solid abdominal organs demonstrate an unremarkable CT appearance for the phase of contrast in which the study was acquired. There is no b owel dilatation, inflammatory fat stranding, free fluid, or lymph node enlargement apparent. The abdominal aorta appears nonaneurysmal. The celiac artery and its branches appear normal. There is multifocal atherosclerotic vascular calcification and mural plaque involving the proximal superior mesenteric artery with a focal short segment high-grade stenosis. There is a mild-moderate calcifie d stenosis involving the left renal artery proximally. The right renal artery demonstrates no signif icant stenosis. There is conspicuous concentric mural plaque and associated vascular calcification i nvlving the distal abdominal aorta with concentric narrowing of the lumen to approximately 8 mm. The inferior mesenteric artery demonstrates multifocal high-grade calcified stenoses. There is a focal high-grade stenosis involving the left proximal common iliac artery extending over a length of about 2 cm. The right common iliac arteries demonstrates conspicuous mural plaque and ca lcification without high-grade stenosis. The left external iliac artery demonstrates no significant stenosis. The right external iliac artery demonstrates a long segment of concentric narrowing due to mural plaque and vascular calcification resulting in high-grade stenosis extending over a length of approximately 3.5 cm. There are multifocal high-grade stenoses and short-segment occlusions involvin g the internal iliac arteries. On the right, the common femoral, superficial femoral, and profunda femoral arteries demonstrate mult ifocal atherosclerotic vascular calcification with short segment moderate profunda stenoses and multi focal moderate high-grade distal superficial femoral artery stenoses. There is extensive multifocal atherosclerotic vascular calcification with multiple high-grade stenoses involving the right poplitea l artery. The anterior tibial artery is not opacified proximal to the proximal calf. The posterior tibial artery is opacified to the level of the foot. The peroneal artery is opacified to the mid anival f. On the left, there is no significant stenosis involving he left common femoral artery. Multifocal ca lcification involves the profunda femoral artery with a moderate calcified stenosis proximally. The proximal left superficial femoral artery is diffusely narrowed with multiple superimposed foci of ariel r complete stenosis. The left superficial femoral artery appears diminutive throughout its course in volving the mid and lower thigh with multiple moderate to high-grade calcified and noncalcified steno ses. There is extensive atherosclerotic vascular calcification involving the left popliteal artery w ith multiple foci of high-grade stenosis. The left posterior tibial artery is opacified to the level of the foot. The left peroneal artery is opacified to the mid calf. The anterior tibial artery is not opacified distal to its course through the septum. IMPRESSION: Extensive bilateral iliac, superficial femoral, popliteal, and runoff disease as described. POS: SELVIN
--- NOTE | 2020-07-07 17:54 | PDOC.HOSPP ---
- Subjective Encounter Date: 07/06/20 Encounter Time: 11:40 Subjective: Patient up in bed no complaints. - Objective Vital Signs & Weight: Vital Signs (12 hours) Temp Pulse Resp BP Pulse Ox 07/07/20 16:54 98.0 F 66 16 152/69 H 100 07/07/20 11:58 97.4 F L 62 14 126/62 96 07/07/20 09:05 97.5 F L 69 16 149/69 H 97 07/07/20 08:13 98 Weight Weight 194 lb 2 oz I&O: 07/06/20 07/07/20 07/08/20 06:59 06:59 06:59 Intake Total 820 1200 Output Total 1650 1125 Balance -830 75 Result Diagrams: 07/07/20 04:08 07/07/20 04:08 Additional Labs: Accuchecks 07/07/20 07/07/20 07/07/20 16:53 11:04 05:50 POC Glucose 88 115 H 89 07/06/20 21:08 POC Glucose 120 H Hospitalist ROS - Review of Systems Respiratory: denies: cough, dry, shortness of breath, hemoptysis, SOB with excertion, pleuritic pain, sputum, wheezing, other Cardiovascular: denies: chest pain, palpitations, orthopnea, paroxysmal noc. dyspnea, edema, light headedness, other Gastrointestinal: denies: nausea, vomiting, abdominal pain, diarrhea, constipation, melena, hematochezia, other - Medication Medications: Active Medications Generic Name Dose Route Start Last Admin Trade Name Freq PRN Reason Stop Dose Admin Hydrocodone Bitart/Acetaminophen 1 tab 07/05/20 05:19 07/07/20 13:29 Hydrocodone/Acetaminophen 5/325 Mg Tablet PO 1 tab Q4H PRN Administration Moderate Pain (4-6) Hydrocodone Bitart/Acetaminophen 2 tab 07/05/20 05:19 07/06/20 10:30 Hydrocodone/Acetaminophen 5/325 Mg Tablet PO 2 tab Q4H PRN Administration Severe Pain (7-10) Hydrocodone Bitart/Acetaminophen 1 tab 07/06/20 15:00 07/07/20 17:27 Hydrocodone/Acetaminophen 10/325 Mg Tablet PO Not Given TID YOU Alprazolam 1 mg 07/06/20 21:00 07/06/20 20:29 Alprazolam 1 Mg Tab PO 1 mg HS YOU Administration Aspirin 81 mg 07/05/20 09:00 07/07/20 09:08 Aspirin Chewable 81 Mg Tab PO 81 mg DAILY YOU Administration Atorvastatin Calcium 40 mg 07/05/20 09:00 07/07/20 09:10 Atorvastatin Calcium 40 Mg Tab PO 40 mg DAILY YOU Administration Clopidogrel Bisulfate 75 mg 07/07/20 09:00 07/07/20 10:19 Clopidogrel Bisulfate 75 Mg Tab PO Not Given DAILY YOU Colchicine 0.6 mg 07/06/20 21:00 07/07/20 09:08 Colchicine 0.6 Mg Tab PO 0.6 mg BID YOU Administration Enoxaparin Sodium 40 mg 07/05/20 09:00 07/07/20 09:10 Enoxaparin Sodium 40 Mg/0.4 Ml Syringe SC 40 mg 0900 YOU Administration Imipramine HCl 50 mg 07/06/20 21:00 07/06/20 20:29 Imipramine 25 Mg Tab PO 50 mg HS YOU Administration Lisinopril 20 mg 07/06/20 21:00 07/07/20 09:08 Lisinopril 20 Mg Tab PO 20 mg BID YOU Administration Metoprolol Tartrate 50 mg 07/05/20 21:00 07/07/20 09:08 Metoprolol Tartrate 25 Mg Tab PO 50 mg Q12HR YOU Administration Potassium Chloride 2.5 meq 07/07/20 09:00 07/07/20 09:09 Potassium Chloride 10 Meq Tab PO 2.5 meq DAILY YOU Administration - Exam Neck: negative: supple, symmetric, no JVD, no thyromegaly, no lymphadenopathy, no carotid bruit, JVD Heart: negative: RRR, no murmur, no gallops, no rubs, normal peripheral pulses, irregular, diminshed peripheral pulses, murmur present, II/IV, III/IV Respiratory: negative: CTAB, no wheezes, no rales, no ronchi, normal chest expansion, no tachypnea, normal percussion, rales, rhonchi, tachypneic, wheezes Gastrointestinal: negative: soft, non-tender, non-distended, normal bowel christiano nds, no palpable masses, no hepatomegaly, no splenomegaly, no bruit, no guarding, no rigidity, tender to palpation, distended, diminished bowl sounds, voluntary guarding Extremities - other findings: Pain upon palpation to lower back area. Hosp A/P (1) Chest pain Code(s): R07.9 - CHEST PAIN, UNSPECIFIED Status: Acute (2) Lower back pain Code(s): M54.5 - LOW BACK PAIN Status: Acute (3) Numbness and tingling of right lower extremity Code(s): R20.0 - ANESTHESIA OF SKIN; R20.2 - PARESTHESIA OF SKIN Status: Acute (4) Diabetes Code(s): E11.9 - TYPE 2 DIABETES MELLITUS WITHOUT COMPLICATIONS Status: Acute (5) HLD (hyperlipidemia) Code(s): E78.5 - HYPERLIPIDEMIA, UNSPECIFIED Status: Acute (6) HTN (hypertension) Code(s): I10 - ESSENTIAL (PRIMARY) HYPERTENSION Status: Acute - Plan We will get MRI of lower back since patient has spinal and paraspinal tenderness and he started having tingling to his right lower leg. He also states that his right lower extremity has been giving out. Stress test pending results. We w ill continue current medications. Echo EF of 45 to 50%. 07/06 patient complaining of lower back pain, lower extremity weakness after he walks has been going on for the past 2 or 3 months. However according the patient this has progressed. Patient also has been having some tingling to his right below the knee area which started about 2 or 3 days ago.
--- NOTE | 2020-07-07 17:58 | PDOC.HOSPP ---
- Objective Vital Signs & Weight: Vital Signs (12 hours) Temp Pulse Resp BP Pulse Ox 07/07/20 16:54 98.0 F 66 16 152/69 H 100 07/07/20 11:58 97.4 F L 62 14 126/62 96 07/07/20 09:05 97.5 F L 69 16 149/69 H 97 07/07/20 08:13 98 Weight Weight 194 lb 2 oz I&O: 07/06/20 07/07/20 07/08/20 06:59 06:59 06:59 Intake Total 820 1200 Output Total 1650 1125 Balance -830 75 Result Diagrams: 07/07/20 04:08 07/07/20 04:08 Additional Labs: Accuchecks 07/07/20 07/07/20 07/07/20 16:53 11:04 05:50 POC Glucose 88 115 H 89 07/06/20 21:08 POC Glucose 120 H Hospitalist ROS - Medication Medications: Active Medications Generic Name Dose Route Start Last Admin Trade Name Freq PRN Reason Stop Dose Admin Hydrocodone Bitart/Acetaminophen 1 tab 07/05/20 05:19 07/07/20 17:53 Hydrocodone/Acetaminophen 5/325 Mg Tablet PO 1 tab Q4H PRN Administration Moderate Pain (4-6) Hydrocodone Bitart/Acetaminophen 2 tab 07/05/20 05:19 07/06/20 10:30 Hydrocodone/Acetaminophen 5/325 Mg Tablet PO 2 tab Q4H PRN Administration Severe Pain (7-10) Hydrocodone Bitart/Acetaminophen 1 tab 07/06/20 15:00 07/07/20 17:27 Hydrocodone/Acetaminophen 10/325 Mg Tablet PO Not Given TID YOU Alprazolam 1 mg 07/06/20 21:00 07/06/20 20:29 Alprazolam 1 Mg Tab PO 1 mg HS YOU Administration Aspirin 81 mg 07/05/20 09:00 07/07/20 09:08 Aspirin Chewable 81 Mg Tab PO 81 mg DAILY YOU Administration Atorvastatin Calcium 40 mg 07/05/20 09:00 07/07/20 09:10 Atorvastatin Calcium 40 Mg Tab PO 40 mg DAILY YOU Administration Clopidogrel Bisulfate 75 mg 07/07/20 09:00 07/07/20 10:19 Clopidogrel Bisulfate 75 Mg Tab PO Not Given DAILY YOU Colchicine 0.6 mg 07/06/20 21:00 07/07/20 09:08 Colchicine 0.6 Mg Tab PO 0.6 mg BID YOU Administration Enoxaparin Sodium 40 mg 07/05/20 09:00 07/07/20 09:10 Enoxaparin Sodium 40 Mg/0.4 Ml Syringe SC 40 mg 0900 YOU Administration Imipramine HCl 50 mg 07/06/20 21:00 07/06/20 20:29 Imipramine 25 Mg Tab PO 50 mg HS YOU Administration Lisinopril 20 mg 07/06/20 21:00 07/07/20 09:08 Lisinopril 20 Mg Tab PO 20 mg BID YOU Administration Metoprolol Tartrate 50 mg 07/05/20 21:00 07/07/20 09:08 Metoprolol Tartrate 25 Mg Tab PO 50 mg Q12HR YOU Administration Potassium Chloride 2.5 meq 07/07/20 09:00 07/07/20 09:09 Potassium Chloride 10 Meq Tab PO 2.5 meq DAILY YOU Administration Hosp A/P (1) Chest pain Code(s): R07.9 - CHEST PAIN, UNSPECIFIED Status: Acute (2) Lower back pain Code(s): M54.5 - LOW BACK PAIN Status: Acute (3) Numbness and tingling of right lower extremity Code(s): R20.0 - ANESTHESIA OF SKIN; R20.2 - PARESTHESIA OF SKIN Status: Acute (4) Diabetes Code(s): E11.9 - TYPE 2 DIABETES MELLITUS WITHOUT COMPLICATIONS Status: Acute (5) HLD (hyperlipidemia) Code(s): E78.5 - HYPERLIPIDEMIA, UNSPECIFIED Status: Acute (6) HTN (hypertension) Code(s): I10 - ESSENTIAL (PRIMARY) HYPERTENSION Status: Acute - Plan We will get MRI of lower back since patient has spinal and paraspinal tenderness and he started having tingling to his right lower leg. He also states that his right lower extremity has been giving out. Stress test pending results. We will continue current medications. Echo EF of 45 to 50%. 07/06 patient complaining of lower back pain, lower extremity weakness after he walks has been going on for the past 2 or 3 months. However according the patient this has progressed. Patient also has been having some tingling to his right below the knee area which started about 2 or 3 days ago. 07/07 given the abnormal MRI and patient symptoms will get neurosurgery to evaluate patient. Patient also had a CTA aortogram which indicated severe lower extremity atherosclerotic disease we will get CV surgery to see this patient. We will get physical therapy to evaluate patient. Can on aspirin/Plavix/statin.
[2020-07-07] MEDS: ALPRAZolam 1 MG TAB PO SCH (21:28)
[2020-07-08 04:32] VITALS: TEMP 97.6
[2020-07-08] MEDS: HYDROcodone/Acetaminophen 5/325 mg Tablet PO PRN (04:41)
[2020-07-08] MEDS ORDERED: Amlodipine 5 MG TAB PO SCH (09:00)
[2020-07-08] MEDS: HYDROcodone/Acetaminophen 10/325 mg Tablet PO SCH (09:54)
[2020-07-08] MEDS: Colchicine 0.6 MG TAB PO SCH (09:54)
[2020-07-08] MEDS: Aspirin Chewable 81 MG TAB PO SCH (09:54)
[2020-07-08] MEDS: Metoprolol Tartrate 25 MG TAB PO SCH (09:54)
[2020-07-08] MEDS: Atorvastatin Calcium 40 MG TAB PO SCH (09:55)
[2020-07-08] MEDS: Potassium Chloride 10 MEQ TAB PO SCH (09:55)
[2020-07-08] MEDS: Lisinopril 20 MG TAB PO SCH (09:55)
[2020-07-08] MEDS: Clopidogrel Bisulfate 75 MG TAB PO SCH (09:56)
[2020-07-08] MEDS: Enoxaparin Sodium 40 MG/0.4 ML SYRINGE SC SCH (09:58)
[2020-07-08 12:07] VITALS: BP 126/64
--- NOTE | 2020-07-08 15:28 | PDOC.DS.DS ---
Provider - Provider Date of Admission: 07/07/20 10:03 Date of Discharge: 07/08/20 Admitting Provider: Naldo Howell Consultations: Cardiology, Other (CV surgery and neurosurgery) Primary Care Physician: Tonny Lanza MD Course - Hospital Course Hospital Course: Patient is a 64-year-old male with a history of CAD status post bypass x6, hypertension, diabetes and continues to smoke who presented to the hospital with chest pain. He also has chronic back pain. Patient was seen by cardiology underwent a stress test which indicated an EF of 61% no evidence of reversible ischemia inferior lateral wall scar. Patient also had a lumbar MRI which indicated disc protrusion at L4-L5 with asymmetrical protrusion on the left resulting in central canal and foraminal stenosis. Was reviewed by neurosurgery no recommendation. He also had a CTA aortogram with runoff which indicated significant bilateral narrowing. CV surgery was consulted recommended surgical intervention however patient wanted to do it as an outpatient. Advised the patient to not smoke and if he does smoke did not wear the nicotine patch due to side effects including heart attack. I also encouraged him to follow-up with CV surgery for surgical intervention. Patient will be discharged home will follow up with his primary he is on aspirin/Plavix/statin. Resuscitation Status: 07/05/20 05:19 Resuscitation Status Routine Resuscitation Status: FULL: Full Resuscitation - Labs Lab Results: 07/07/20 04:08 07/07/20 04:08 Abnormal Lab Results - Last 48 hrs 07/07/20 04:08: Sodium 135 L, Carbon Dioxide 22 L 07/07/20 04:08: Neutrophils % (Manual) 27 L, Lymphocytes % (Manual) 64 H Additional comments: Aorta with runoff CTA: Extensive bilateral iliac, superficial femoral, popliteal disease. Lumbar MRI: Disc protrusion at L4-L5 with asymmetrical protrusion on the left resulting in central canal and foraminal stenosis. Echocardiogram: EF of 45 to 50%. - Physical Exam Vitals: Vital Signs (12 hours) Temp Pulse Pulse Pulse Resp BP BP 07/08/20 12:00 97.6 F 71 18 07/08/20 11:01 07/08/20 08:55 69 83 133/67 145/65 H 07/08/20 07:59 97.6 F 71 16 07/08/20 04:00 97.6 F 80 16 BP Pulse Ox 07/08/20 12:00 126/64 99 07/08/20 11:01 99 07/08/20 08:55 07/08/20 07:59 159/76 H 99 07/08/20 04:00 149/64 H 95 Weight Weight 195 lb 4.8 oz Physical Exam: The patient was seen and examined on the day of discharge. Problem - Problem (1) Chest pain Code(s): R07.9 - CHEST PAIN, UNSPECIFIED Status: Acute (2) Lower back pain Code(s): M54.5 - LOW BACK PAIN Status: Acute (3) Numbness and tingling of right lower extremity Code(s): R20.0 - ANESTHESIA OF SKIN; R20.2 - PARESTHESIA OF SKIN Status: Acute (4) Diabetes Code(s): E11.9 - TYPE 2 DIABETES MELLITUS WITHOUT COMPLICATIONS Status: Acute (5) HLD (hyperlipidemia) Code(s): E78.5 - HYPERLIPIDEMIA, UNSPECIFIED Status: Acute (6) HTN (hypertension) Code(s): I10 - ESSENTIAL (PRIMARY) HYPERTENSION Status: Acute Plan - Discharge Medications Prescriptions: Nicotine [Nicotine Patch] 1 patch TD DAILY #14 patch.[email or web address] Home Medications: Medication Instructions Recorded Confirmed Type Aspirin Chewable [Aspirin Chewable 81 mg PO DAILY 06/27/14 07/05/20 History Tablet] Atorvastatin Calcium [Lipitor] 40 mg PO DAILY #0 tab 10/17/14 07/05/20 Rx Imipramine HCl [Tofranil] 50 mg PO HS 10/17/14 07/05/20 History Clopidogrel Bisulfate [Plavix] 75 mg PO DAILY 10/01/17 07/05/20 History Potassium Chloride 2.5 meq PO DAILY 10/01/17 07/05/20 History ALPRAZolam [Xanax] 1 mg PO HS 06/05/20 07/05/20 History Colchicine 0.6 mg PO BID 06/05/20 07/05/20 History Lisinopril 5 mg PO DAILY #90 tablet 06/06/20 07/05/20 Rx Metoprolol Tartrate [Lopressor] 25 mg PO Q12HR #180 tab 06/06/20 07/05/20 Rx HYDROcodone Bit/APAP 10/325 [Elfrida] 1 tab PO TID 07/05/20 07/05/20 History Nicotine [Nicotine Patch] 1 patch TD DAILY #14 patch.td24 07/08/20 Rx Allergies: Corticosteroids (Glucocorticoids) Adverse Reaction (Intermediate, Verified 07/05/20 03:38) Anxiety/nervousness, insomnia. - Discharge Instructions Activity:: Activity as Tolerated Nourishment:: Heart Healthy Diet - Follow up Plan Referrals: Kristofer Arceo MD [Active] - (CALL AND SCHEDULE FOLLOW UP APPT INSTRUCTED) Kristofer Darnell MD [Active] - (CALL AND SCHEDULE FOLLOW UP APPT INSTRUCTED) Tonny Lanza MD [Primary Care Provider] - 7 Days (CALL AND SCHEDULE FOLLOW UP APPT TO SEE DR LANZA WITHIN 1 WEEK) Disposition: HOME Quality - Care Measures CORE MEASURES:: N/A
--- NOTE | 2020-07-08 16:08 | CON ---
DATE OF CONSULTATION: HISTORY OF PRESENT ILLNESS: This is a 64-year-old gentleman with claudication in both calves at about 10 yards. The patient states his ambulation has actually improved while in the hospital since he stopped smoking. Symptoms have been present for a long duration. He has multiple cardiovascular risk factors including hypertension, diabetes mellitus, dyslipidemia, and smoking history of half a pack of cigarettes a day. PAST SURGICAL HISTORY: Includes coronary bypass graft x3, as well as previous neck surgery. HOME MEDICATIONS: 1. Aspirin 81 a day. 2. Plavix 75 a day. 3. Lipitor 40 a day. 4. Colchicine 0.6 b.i.d. 5. Xanax, which he buys off the street. 6. Lisinopril 5 a day. 7. Metoprolol 25 b.i.d. He takes nothing for his diabetes and his sugars were actually normal on this admission raising the question of this diagnosis. He has had a cardiac echo showing an ejection fraction of 45% to 50%. He has had a CT angiogram showing bilateral external iliac artery disease of significance as well as some mild common iliac artery disease and bilateral superficial femoral artery disease. PHYSICAL EXAMINATION: VITAL SIGNS: Blood pressure is 150/70, heart rate is 70. NECK: No carotid bruits. LUNGS: Clear to auscultation. CARDIAC: Regular rate and rhythm. No murmurs. Healed sternum. ABDOMEN: Soft and nontender. EXTREMITIES: He has trace to 1+ right femoral artery and 2+ left femoral artery pulse with no palpable distal pulses. He has no peripheral edema. LABORATORY VALUES: Satisfactory. 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 We will contact him as an outpatient. Job ID: [id number]
--- NOTE | 2020-07-09 14:29 | CCLSPC ---
Lower extremity arterial evaluation was performed using Doppler waveform analysis and segmental limb pressures. Examination of the right leg revealed diminished waveform at the femoral level that persisted through the ankle with an ankle-arm index of 0.65. Toe-brachial index was depressed. Left lower extremity demonstrates rather severe abnormalities in the left common femoral artery with persistent diminished waveforms distally, an ankle-arm index of 0.53, and an abnormal toe-brachial index. This study is most consistent with bilateral iliac artery disease and his ankle-arm index could be consistent with a history of significant claudication. Job ID: [id number]
--- NOTE | 2020-07-10 07:21 | PQF ---
CLINICAL DOCUMENTATION CLARIFICATION FORM: Dear : Addis Whitmore Date / Time: 07/10/2020 9986 Please exercise your independent, professional judgment in responding to the clarification form. Clinical indicators are provided on the bottom of this form for your review Is Chest Pain associated with: Please check appropriate box(es): [ x ] Musculoskeletal [ ] Angina with known coronary artery disease [ ] Other diagnosis [ ] Unable to determine Physician Signature: Date/Time: For continuity of documentation, please document condition throughout progress notes and discharge summary. Thank You. To be completed by CDI/Coding staff for physician review: Present Clinical Indicators - Signs / Symptoms / Labs Results and Location in Medical Record [X] BP 146/71, Pulse 95, Resp 14, temp 98.5 Vital signs 07/05 [X] Pt started with restrosternal chest pain H&P p1 07/05 Dr Urbano [X] pain described as stabbing 03/17 no radiating associated with palpitation diaphoresis and SOB H&P p1 07/05 Dr Urbano [X] chest pain, pt with extensive heart disease H&P p2 07/05 Dr Urbano [X] EKG with Qwaves and tachycardia, no ST ischemic changes H&P p2 07/05 Dr Urbano [X] Echocardiogram: EF 45-50%, diastolic dysfunction Cardiac procedure 07/05 Dr Blankenship Present Risk Factors Results and Location in Medical Record [X] 64 year-old Male H&P p1 07/05 Dr Urbano [X] HTN H&P p1 07/05 Dr Urbano [X] DM H&P p1 07/05 Dr Urbano [X] CAD s/p CABG H&P p1 07/05 Dr Urbano [X] Smoker H&P p1 07/05 Dr Urbano [X] HLD H&P p1 07/05 Dr Urbano [X] Anxiety Consult 07/05 [X] Hypercholesterolemia Consult 07/05 Present Treatments Results and Location in Medical Record [X] Cardio consult Consult Dr Blankenship 07/05 [X] Stress test Cardiac procedure 07/05 Dr Mahoney [X] [place] 1 tab oral OCT 16 [X] Adenosine 60 mg oral OCT 16 [X] Norvasc 5mg oral OCT 16 [X] Aspirin 81 mgoral OCT 16 [X] Nitroglycerin 0.4mg SL OCT 16 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
== END 2020-07-08 14:38 | disposition home or self-care (01) | DRG 313 ==
LOC: 2NO 02:59 → OBSVTOIN 07-07 10:03
PROVIDERS: ADMIT Internal Medicine; ATTEND Internal Medicine
DX: R07.89 Other chest pain (principal); M48.061 Spinal stenosis, lumbar region without neurogenic claudication; I70.213 Atherosclerosis of native arteries of extremities with intermittent claudication, bilateral legs; Z20.828 Contact with and (suspected) exposure to other viral communicable diseases; I25.10 Atherosclerotic heart disease of native coronary artery without angina pectoris; I10 Essential (primary) hypertension; G89.29 Other chronic pain; F17.210 Nicotine dependence, cigarettes, uncomplicated; E78.5 Hyperlipidemia, unspecified; F43.10 Post-traumatic stress disorder, unspecified; N28.9 Disorder of kidney and ureter, unspecified; E78.00 Pure hypercholesterolemia, unspecified; F41.9 Anxiety disorder, unspecified; I08.1 Rheumatic disorders of both mitral and tricuspid valves; R20.0 Anesthesia of skin; E11.51 Type 2 diabetes mellitus with diabetic peripheral angiopathy without gangrene; I25.2 Old myocardial infarction; Z28.21 Immunization not carried out because of patient refusal; Z79.82 Long term (current) use of aspirin; Z95.1 Presence of aortocoronary bypass graft; Z79.02 Long term (current) use of antithrombotics/antiplatelets; Z79.899 Other long term (current) drug therapy
CPT/HCPCS: 36415; 36416; 72148; 75635; 78452; 80053; 80061; 85025; 86769; 87635; 93017; 93306; 93923; 94760; 96372; 96374; 96376; A9500; G0378; J0153; J0360; J1650; Q9967; U0003

== ENCOUNTER 2020-07-16 12:40 | Emergency (ER) | payer MEDICARE ==
[2020-07-16] MEDS ORDERED: Iopamidol-370 76% 500 ML 1 ML ONE (13:04)
[2020-07-16] MEDS ORDERED: Ondansetron PF 4 MG/2 ML Vial ONE (13:30)
[2020-07-16] MEDS ORDERED: Morphine 4 MG/ML VIAL ONE (13:30)
--- NOTE | 2020-07-16 13:38 | RAD ---
XR Chest 1 View Portable HISTORY: Upper abdominal pain after taking the potassium pill. COMPARISON: 07/04/2020 FINDINGS: The heart size is normal. Changes of median sternotomy are again seen. The lungs are well e xpanded without focal areas of consolidation, pneumothorax or pleural effusions. IMPRESSION: No radiographic evidence of acute cardiopulmonary process.
[2020-07-16 14:03] LABS: #Eosinphils 0.1 thou/uL (0.0-0.7); #Lymphocytes 1.6 thou/uL (1.20-3.40); #Monocytes 0.3 thou/uL (0.11-0.59); #Neutrophils 3.2 thou/uL (1.40-6.50); %Basophils 0.4 % (0.0-1.0); %Lymphocytes 30.1 % (21.0-51.0); %Monocytes 6.1 % (0.0-10.0); %Neutrophils 61.4 % (42.0-75.0); Hemoglobin 13.3 g/dL (14.0-18.0); Mean Corpuscular HGB CONC 32.4 g/dL (32.0-36.0); Mean Corpuscular Hemoglobin 29.2 pg (27.0-31.0); Mean Corpuscular Volume 90.1 fL (78.0-98.0); Mean Platelet Volume 7.5 fL (7.4-10.4); Platelet Count 274 thou/uL (130-400); RBC Distribution Width 12.7 % (11.5-14.5); Red Blood Cell (RBC) Count 4.56 mill/uL (4.70-6.10); White Blood Cell (WBC) Count 5.2 thou/uL (4.8-10.8)
[2020-07-16 17:24] LABS: ALT (SGPT) 24 U/L (8-55); AST (SGOT) 24 U/L (5-34); Albumin 3.7 g/dL (3.4-4.8); Alkaline Phosphatase 57 U/L (40-110); Anion Gap 13 mmol/L (10-20); BUN (Urea Nitrogen) 7 mg/dL (8.4-25.7); Bilirubin, Total 0.4 mg/dL (0.2-1.2); Calc. Creatinine Clearance 0 mL/min (70-130); Calcium 8.6 mg/dL (7.8-10.44); Carbon Dioxide 24 mmol/L (23-31); Chloride 106 mmol/L (98-107); Glucose 132 mg/dL (80-115); Lipase 17 U/L (8-78); Potassium 4.1 mmol/L (3.5-5.1); Protein, Total 6.7 g/dL (5.8-8.1); Sodium 139 mmol/L (136-145)
--- NOTE | 2020-07-16 18:47 | CT ---
CT of abdomen and pelvis: 07/16/2020 COMPARISON: 07/03/2014 HISTORY: Upper abdominal pain, left-sided sudden onset of abdominal pain TECHNIQUE: Axial CT imaging is obtained at 5 mm intervals from the lung bases through the pubic symph ysis with IV contrast. Coronal and sagittal reformatted imaging obtained FINDINGS: The lack of oral contrast limits assessment of the bowel. The imaged lung bases appear unre markable. Coronary arterial calcification is present. There is no free intraperitoneal air or fluid appreciated. Diffuse hypodensity of the hepatic parenchyma suggesting steatosis. Splenic granulomata noted. The ga llbladder, pancreas, and kidneys demonstrate no acute findings. Bilateral nonspecific subcentimeter adrenal nodules are noted, 1.1 cm on the right and 0.8 cm on the left, unchanged when compared to the 2013 exam. Extensive severe atherosclerotic calcification of the abdominal aorta and its branches noted with sev ere atherosclerotic disease involving the imaged arterial structures of the pelvis and a lateral lower extremities. No evidence for bowel obstruction or inflammatory change. Linear density in the region of the cecal a pex may signify prior appendectomy. Appendix nonvisualized. No pelvic, mesenteric, or retroperitoneal lymphadenopathy. Osseous structures demonstrate no acute fi ndings. IMPRESSION: No free intraperitoneal air or evidence for bowel obstruction. Extensive atherosclerotic disease. Incidental findings as above.
== END 2020-07-16 18:59 | disposition home or self-care (01) ==
LOC: ERS 12:40
DX: I73.9 Peripheral vascular disease, unspecified (principal); I10 Essential (primary) hypertension; R10.13 Epigastric pain; I25.10 Atherosclerotic heart disease of native coronary artery without angina pectoris; I25.2 Old myocardial infarction; E11.9 Type 2 diabetes mellitus without complications; M19.90 Unspecified osteoarthritis, unspecified site; F17.210 Nicotine dependence, cigarettes, uncomplicated; Z79.82 Long term (current) use of aspirin; Z79.899 Other long term (current) drug therapy
CPT/HCPCS: 36415; 71045; 74177; 80053; 83690; 84484; 85025; 93005; 96374; 96375; J2270; J2405; Q9967

== ENCOUNTER 2020-07-21 10:46 | Outpatient (CLI) | payer MEDICARE ==
[2020-07-21 11:24] LABS: Hemoglobin 12.7 g/dL (14.0-18.0); Mean Corpuscular HGB CONC 31.9 G/DL (32.0-36.0); Mean Corpuscular Hemoglobin 28.5 PG (27.0-33.0); Mean Corpuscular Volume 89.4 fl (80.0-100.0); Mean Platelet Volume 9.8 fl (7.4-10.4); Platelet Count 270 10x3/uL (130-400); RBC Distribution Width 13.3 % (11.5-14.5); Red Blood Cell (RBC) Count 4.45 10x6/uL (4.40-5.80); White Blood Cell (WBC) Count 4.5 10x3/uL (4.5-11.0)
[2020-07-21 11:53] LABS: Anion Gap 12 mmol/L (10-20); BUN (Urea Nitrogen) 9 mg/dL (8.4-25.7); Calc. Creatinine Clearance 0 mL/min (70-130); Calcium 9.4 mg/dL (7.8-10.44); Carbon Dioxide 28 mmol/L (23-31); Chloride 107 mmol/L (98-107); Glucose 125 mg/dL (80-115); Potassium 4.3 mmol/L (3.5-5.1); Sodium 143 mmol/L (136-145)
[2020-07-22 06:32] LABS: SARS-CoV-2 MS2 Positive; SARS-CoV-2 N Gene Negative; SARS-CoV-2 S Gene Negative; SARS-CoV-2 by NAA Not Detected (NotDetected); SARS-CoV-2 orf1ab Negative
== END 2020-07-21 10:47 | disposition home or self-care (01) ==
LOC: LABBT 10:46
PROVIDERS: ATTEND Thoracic Surgery (Cardiothoracic Vascular Surgery)
DX: Z01.812 Encounter for preprocedural laboratory examination (principal); Z20.828 Contact with and (suspected) exposure to other viral communicable diseases; I73.9 Peripheral vascular disease, unspecified
CPT/HCPCS: 80048; 85027; U0003; 87635

== ENCOUNTER 2020-08-06 06:42 | Outpatient (CLI) | payer MEDICARE ==
[2020-08-06 12:54] LABS: Hemoglobin 14.1 g/dL (14.0-18.0); Mean Corpuscular Hemoglobin 27.6 PG (27.0-33.0); Mean Corpuscular Volume 86.3 fl (80.0-100.0); Mean Platelet Volume 9.4 fl (7.4-10.4); Platelet Count 294 10x3/uL (130-400); RBC Distribution Width 13.2 % (11.5-14.5); Red Blood Cell (RBC) Count 5.11 10x6/uL (4.40-5.80); White Blood Cell (WBC) Count 4.3 10x3/uL (4.5-11.0)
[2020-08-06 13:56] LABS: Anion Gap 16 mmol/L (10-20); BUN (Urea Nitrogen) 7 mg/dL (8.4-25.7); Calc. Creatinine Clearance 0 mL/min (70-130); Calcium 9.2 mg/dL (7.8-10.44); Carbon Dioxide 20 mmol/L (23-31); Chloride 105 mmol/L (98-107); Glucose 153 mg/dL (80-115); Potassium 3.6 mmol/L (3.5-5.1); Sodium 137 mmol/L (136-145)
[2020-08-07 00:19] LABS: SARS-CoV-2 MS2 Positive; SARS-CoV-2 N Gene Negative; SARS-CoV-2 S Gene Negative; SARS-CoV-2 by NAA Not Detected (NotDetected); SARS-CoV-2 orf1ab Negative
== END 2020-08-06 06:43 | disposition home or self-care (01) ==
LOC: LABBT 06:42
PROVIDERS: ATTEND Thoracic Surgery (Cardiothoracic Vascular Surgery)
DX: Z01.812 Encounter for preprocedural laboratory examination (principal); Z20.828 Contact with and (suspected) exposure to other viral communicable diseases; I73.9 Peripheral vascular disease, unspecified
CPT/HCPCS: 80048; 85027; 86850; 86900; 86901; U0003; 87635

== ENCOUNTER 2020-09-16 11:45 | Inpatient (IN) | payer MEDICARE ==
[2020-09-29] MEDS ORDERED: Fentanyl 100 MCG/2 ML VIAL ONE ×2 (06:32→10:57)
[2020-09-29] MEDS ORDERED: Midazolam HCl 5 mg/5 ml Vial ONE (06:32)
[2020-09-29] MEDS ORDERED: Midazolam HCl 2 mg/2 ml Vial ONE (06:33)
[2020-09-29] MEDS ORDERED: Heparin 5,000 UNITS/ML VIAL ONE (06:35)
[2020-09-29] MEDS ORDERED: Protamine Sulfate 50 MG/5 ML VIAL ONE (06:35)
--- NOTE | 2020-09-29 06:40 | HP ---
HISTORY OF PRESENT ILLNESS: This is a 64-year-old gentleman with claudication in both legs at short distances with a longstanding smoking history. He also has a history of hypertension, diabetes mellitus, and dyslipidemia. PAST SURGICAL HISTORY: Includes previous coronary bypass grafting as well as previous neck surgery. His cardiac status is without angina and his ejection fraction is 45% to 50%. MEDICATIONS: Include: 1. Aspirin as well as Plavix, which has been on hold. 2. Lipitor 40. 3. Colchicine 0.6 b.i.d. 4. Lisinopril 5 a day. 5. Metoprolol 25 b.i.d. 6. Xanax which he buys off the street. He does not take any medications for his diabetes mellitus. PHYSICAL EXAMINATION: NECK: He has no carotid bruits. LUNGS: Clear to auscultation. CHEST: His chest is well healed. Sternum is stable. CARDIAC: His rhythm is regular. He has no murmurs. ABDOMEN: Obese and nontender. EXTREMITIES: He has a 1+ right femoral pulse, 2+ left femoral pulse, and no distal pulses with no peripheral edema. PLAN: At this time is for right femoral endarterectomy and right external iliac artery stenting and consent has been obtained. Job ID: [id number]
[2020-09-29] MEDS ORDERED: Promethazine HCl 25 MG/ML VIAL SLOW IVP PRN (09:04)
[2020-09-29] MEDS ORDERED: Promethazine HCl 25 MG/ML VIAL IM PRN (09:04)
[2020-09-29] MEDS ORDERED: Ondansetron HCl/PF 4 MG/2 ML Vial IVP PRN (09:04)
[2020-09-29] MEDS ORDERED: PROPOFOL 200 MG/20 ML VIAL ONE (10:03)
[2020-09-29] MEDS ORDERED: Glycopyrrolate 0.2 MG/ML 5 ML SYRINGE ONE (10:03)
[2020-09-29] MEDS ORDERED: Lidocaine 1% PF 5 ML VIAL ONE (10:03)
[2020-09-29] MEDS ORDERED: Ondansetron PF 4 MG/2 ML Vial ONE (10:03)
[2020-09-29] MEDS ORDERED: PHENYLEPHRINE-NS 100 MCG/ML 10 ML SYRINGE ONE (10:03)
[2020-09-29] MEDS ORDERED: Rocuronium Bromide 10 MG/ML (10ML VIAL) ONE (10:03)
[2020-09-29] MEDS ORDERED: Ketorolac Tromethamine 30 MG/ML VIAL ONE (10:03)
[2020-09-29] MEDS ORDERED: Dexamethasone 20 MG/5 ML VIAL ONE (10:03)
[2020-09-29] MEDS ORDERED: Dextrose 50% Abboject 50 ML SYRINGE SLOW IVP PRN (10:24)
[2020-09-29] MEDS ORDERED: Ondansetron PF 4 MG/2 ML Vial IVP PRN (10:24)
[2020-09-29] MEDS ORDERED: HYDROcodone/Acetaminophen 5/325 mg Tablet PO PRN (10:24)
[2020-09-29] MEDS ORDERED: Dextrose 5% in Water 1,000 ML IV PRN (10:24)
[2020-09-29] MEDS ORDERED: Sodium Chloride 0.9% 1,000 ML IV SCH (10:24)
[2020-09-29] MEDS ORDERED: Fentanyl 100 MCG/2 ML VIAL SLOW IVP PRN (10:24)
[2020-09-29] MEDS ORDERED: Acetaminophen 325 MG TAB PO PRN (10:24)
[2020-09-29 13:08] LABS: Glucose 161 mg/dL (80-115)
[2020-09-29] MEDS: HYDROcodone/Acetaminophen 5/325 mg Tablet PO PRN ×3 (13:28→23:24)
[2020-09-29 14:19] VITALS: BMI 27.3
--- NOTE | 2020-09-29 15:28 | OP ---
DATE OF PROCEDURE: 09/29/2020 PREOPERATIVE DIAGNOSIS: Peripheral arterial disease. POSTOPERATIVE DIAGNOSIS: Peripheral arterial disease. PROCEDURES PERFORMED: 1. Right common femoral artery endarterectomy with bovine patch angioplasty. 2. Aortogram. 3. Bilateral iliofemoral runoff with stenting of the right external iliac artery using an 8 x 60 self-expanding stent, posted with a 7 mm balloon. ANESTHESIA: General. ESTIMATED BLOOD LOSS: Less than 100 mL. FLUORO: 49 seconds. CONTRAST: 30 mL. DESCRIPTION OF PROCEDURE: After prepping and draping, an incision was made in the right groin. There was a fairly intense reaction around the common femoral artery and this was dissected out, ligating some small branches with clips rather than suture. Following mobilization from the inguinal ligament, exposing the external iliac artery down to the takeoff of the superficial and profunda femoral branches, the patient had an ACT checked, it was 300 seconds. A needle was then inserted, although a pulse could not be felt. There was good blood return. A wire advanced into the aorta. A 7-Danish sheath with a marker was placed and angiogram was obtained of the bilateral external iliac arteries. There was about a 70% stenosis of the left common iliac artery along 70% to 80% stenosis of the right external iliac artery and then severe common femoral disease on the right and less well delineated on the left. Following this, a 5 x 60 balloon was used to pre-dilate and also get an idea for length. An 8 mm x 60 mm self-expanding stent was then deployed from the distal common iliac on the right down the external and then posted with a 7-mm balloon. Following this, there was a nice result. Sheath was removed and clamps were applied to the external iliac artery, superficial, and profunda, and endarterectomy of the common femoral artery was carried out. The orifice of the deep and superficial femoral artery were endarterectomized, following which a bovine patch was placed. Heparin was partially reversed with protamine. After islam of flow and after obtaining good hemostasis, the wound was irrigated and closed in layers and the patient is to be taken to the recovery room. Job ID: [id number]
[2020-09-29] MEDS: Fentanyl 100 MCG/2 ML VIAL SLOW IVP PRN ×3 (15:47→23:33)
[2020-09-29] MEDS: CEFAZOLIN 2 GM in Premix Bag 1 BAG IVPB SCH ×2 (15:48→23:24)
[2020-09-29 17:37] LABS: Glucose 197 mg/dL (80-115)
[2020-09-29] MEDS: Insulin Regular 300 UNITS/3 ML VIAL SC PRN (19:14)
[2020-09-29] MEDS: ALPRAZolam 1 MG TAB PO SCH (21:03)
[2020-09-29] MEDS: Atorvastatin Calcium 10 MG TAB PO SCH (21:03)
[2020-09-29] MEDS: Metoprolol Tartrate 25 MG TAB PO SCH (21:03)
[2020-09-29 21:42] LABS: Glucose 169 mg/dL (80-115)
[2020-09-30] MEDS: Fentanyl 100 MCG/2 ML VIAL SLOW IVP PRN ×4 (03:36→21:38)
[2020-09-30] MEDS: CEFAZOLIN 2 GM in Premix Bag 1 BAG IVPB SCH (05:46)
[2020-09-30 08:01] LABS: Glucose 140 mg/dL (80-115)
[2020-09-30] MEDS: Aspirin Chewable 81 MG TAB PO SCH (08:54)
[2020-09-30] MEDS: Lisinopril 5 MG TAB PO SCH (08:54)
[2020-09-30] MEDS: Metoprolol Tartrate 25 MG TAB PO SCH ×2 (08:54→20:03)
[2020-09-30] MEDS: Clopidogrel Bisulfate 75 MG TAB PO SCH (08:54)
[2020-09-30 12:08] LABS: Glucose 174 mg/dL (80-115)
--- NOTE | 2020-09-30 12:38 | PRG ---
DATE OF SERVICE: 09/30/2020 The patient afebrile overnight, was able to void, and has walked twice this morning. He has complaints of some numbness around his incision, but otherwise no complaints. His incision site looks good, and he has good Doppler signal in the feet bilaterally. I offered discharge today and he prefers to stay 1 more day, and we will reassess tomorrow. Job ID: [id number]
[2020-09-30] MEDS: Insulin Regular 300 UNITS/3 ML VIAL SC PRN (14:02)
[2020-09-30 17:24] LABS: Glucose 147 mg/dL (80-115)
[2020-09-30] MEDS: HYDROcodone/Acetaminophen 10/325 mg Tablet PO PRN (18:47)
[2020-09-30] MEDS: ALPRAZolam 1 MG TAB PO SCH (20:03)
[2020-09-30] MEDS: Atorvastatin Calcium 10 MG TAB PO SCH (20:03)
[2020-09-30 21:15] LABS: Glucose 178 mg/dL (80-115)
[2020-10-01] MEDS: HYDROcodone/Acetaminophen 10/325 mg Tablet PO PRN ×2 (00:06→09:25)
[2020-10-01] MEDS: Fentanyl 100 MCG/2 ML VIAL SLOW IVP PRN (03:10)
[2020-10-01] MEDS: Lisinopril 5 MG TAB PO SCH (09:28)
[2020-10-01] MEDS: Clopidogrel Bisulfate 75 MG TAB PO SCH (09:28)
[2020-10-01] MEDS: Aspirin Chewable 81 MG TAB PO SCH (09:28)
[2020-10-01] MEDS: Metoprolol Tartrate 25 MG TAB PO SCH (09:29)
[2020-10-01 11:33] VITALS: BP 152/73; TEMP 98.3
--- NOTE | 2020-10-02 06:47 | DIS ---
DATE OF ADMISSION: 09/29/2020 DATE OF DISCHARGE: 10/01/2020 The patient was admitted for a right femoral endarterectomy as well as right external iliac artery stenting, which was performed on the day of admission. He had an 8 mm self expanding stent placed posted to a 7 mm balloon. Postoperatively, he complained of some numbness around his incision as well as a feeling of swelling. His discharge was delayed by 24 hours because he did not wish to go home the day after surgery. He will be discharged home to resume his admitting medications and I have suggested increasing the glipizide to 10 mg a day due to persistently elevated blood sugars while on a diabetic diet hospitalized. Additionally, the patient has requested prescriptions for Xanax which he says Dr. Woods has now refused to refill and he is buying on the streets and I have suggested to him that it would not be appropriate for me to prescribe this. I was also going to prescribe Latta, however, the patient appears to have received 90 of these tablets on September 24, which is just one week ago and so I will not be prescribing this either. He is to resume his aspirin and Plavix. Unfortunately, the patient has continued to smoke about a pack of cigarettes a day at home and overall his prognosis from his cardiovascular disease will continue to be poor given his multiple medical problems and persistent smoking. Job ID: [id number]
== END 2020-10-01 15:21 | disposition home or self-care (01) | DRG 272 ==
LOC: EDSTATUS 09-19 11:45 → SURG A 09-29 06:00
PROVIDERS: ADMIT Thoracic Surgery (Cardiothoracic Vascular Surgery); ATTEND Thoracic Surgery (Cardiothoracic Vascular Surgery)
PROC: 04CK3ZZ Extirpation of Matter from Right Femoral Artery, Percutaneous Approach (ICD-10-PCS; principal; 2020-09-29)
PROC: 04UK3KZ Supplement Right Femoral Artery with Nonautologous Tissue Substitute, Percutaneous Approach (ICD-10-PCS; 2020-09-29)
PROC: 047C3DZ Dilation of Right Common Iliac Artery with Intraluminal Device, Percutaneous Approach (ICD-10-PCS; 2020-09-29)
DX: E11.51 Type 2 diabetes mellitus with diabetic peripheral angiopathy without gangrene (principal); I10 Essential (primary) hypertension; E78.5 Hyperlipidemia, unspecified; Z79.82 Long term (current) use of aspirin; Z79.01 Long term (current) use of anticoagulants; Z79.899 Other long term (current) drug therapy; Z95.1 Presence of aortocoronary bypass graft
CPT/HCPCS: 36415; 36416; 76000; 82947; 86850; 86900; 86901; C1725; J0690; J1100; J1642; J1644; J1815; J1885; J2250; J2405; J2704; J2720; J3010

== ENCOUNTER 2020-12-20 05:53 | Inpatient (IN) | payer MEDICARE ==
[2020-12-20 06:46] LABS: #Eosinphils 0.2 thou/uL (0.0-0.7); #Lymphocytes 3.1 thou/uL (1.20-3.40); #Monocytes 0.5 thou/uL (0.11-0.59); #Neutrophils 3.9 thou/uL (1.40-6.50); %Basophils 0.4 % (0.0-1.0); %Eosinophils 3.1 % (0.0-10.0); %Monocytes 5.9 % (0.0-10.0); %Neutrophils 50.6 % (42.0-75.0); Hemoglobin 11.2 g/dL (14.0-18.0); Mean Corpuscular HGB CONC 33.4 g/dL (32.0-36.0); Mean Corpuscular Hemoglobin 28.7 pg (27.0-31.0); Mean Corpuscular Volume 85.9 fL (78.0-98.0); Platelet Count 349 thou/uL (130-400); RBC Distribution Width 14.5 % (11.5-14.5); White Blood Cell (WBC) Count 7.7 thou/uL (4.8-10.8)
[2020-12-20] MEDS ORDERED: Aspirin Chewable 81 MG TAB ONE (06:51)
[2020-12-20 07:07] LABS: ALT (SGPT) 16 U/L (8-55); AST (SGOT) 24 U/L (5-34); Albumin 4.1 g/dL (3.4-4.8); Alkaline Phosphatase 73 U/L (40-110); Anion Gap 13 mmol/L (10-20); BUN (Urea Nitrogen) 10 mg/dL (8.4-25.7); Bilirubin, Total 0.4 mg/dL (0.2-1.2); Calc. Creatinine Clearance 0 mL/min (70-130); Calcium 9.1 mg/dL (7.8-10.44); Carbon Dioxide 26 mmol/L (23-31); Chloride 104 mmol/L (98-107); Glucose 93 mg/dL (80-115); Potassium 3.8 mmol/L (3.5-5.1); Protein, Total 7.1 g/dL (5.8-8.1); Sodium 139 mmol/L (136-145)
[2020-12-20] MEDS ORDERED: ALPRAZolam 0.25 MG TAB ONE (07:52)
[2020-12-20] MEDS ORDERED: hydrALAZINE 20 MG/ML VIAL SLOW IVP PRN (08:45)
[2020-12-20] MEDS ORDERED: HYDROcodone/Acetaminophen 10/325 mg Tablet PO SCH (09:00)
[2020-12-20] MEDS ORDERED: Aspirin 325 mg Enteric Coated Tablet PO SCH (09:00)
[2020-12-20] MEDS ORDERED: Sodium Chloride 0.9% 1,000 ML IV SCH (09:00)
[2020-12-20] MEDS ORDERED: HYDROcodone/Acetaminophen 10/325 mg Tablet ONE (09:06)
[2020-12-20] MEDS ORDERED: Dextrose 50% Abboject 50 ML SYRINGE SLOW IVP PRN (09:14)
[2020-12-20] MEDS ORDERED: HumaLOG 300 UNITS/3 ML VIAL SC PRN (09:14)
[2020-12-20] MEDS ORDERED: Dextrose 5% in Water 1,000 ML IV PRN (09:14)
[2020-12-20 09:17] LABS: Bilirubin Negative (Negative); Blood, Urine Negative (Negative); Clarity Clear (Clear); Glucose, Urine (Dipstick) Normal (Negative); Ketone, Urine Negative (Negative); Leukocyte Negative Leu/uL (Negative); Nitrite Negative (Negative); Protein, Urine (Dipstick) Negative (Neg-Trace); Urobilinogen 6 mg/dL (Less than 2)
[2020-12-20 10:10] VITALS: BMI 30.2
[2020-12-20] MEDS ORDERED: ADENOSINE 60 MG/20 ML VIAL ONE (10:58)
[2020-12-20] MEDS ORDERED: Iopamidol 370 76% 100 ML VIAL ONE (11:33)
[2020-12-20 11:46] LABS: Troponin I Less than 0.010 ng/mL (< 0.028)
[2020-12-20] MEDS: Lorazepam 2 MG/ML VIAL SLOW IVP PRN (11:48)
[2020-12-20] MEDS: Enoxaparin Sodium 40 MG/0.4 ML SYRINGE SC SCH (11:48)
[2020-12-20 17:08] LABS: SARS-CoV-2 PCR by NAA Not Detected (NotDetected)
[2020-12-20] MEDS: HYDROcodone/Acetaminophen 10/325 mg Tablet PO PRN (17:44)
[2020-12-20] MEDS: Sodium Chloride 0.9% 1,000 ML IV SCH (17:46)
[2020-12-20 18:48] LABS: Troponin I Less than 0.010 ng/mL (< 0.028)
[2020-12-20] MEDS: Rosuvastatin 20 MG TAB PO SCH (21:28)
[2020-12-20] MEDS: Metoprolol Tartrate 25 MG TAB PO SCH (21:28)
[2020-12-21 05:34] LABS: #Basophils 0.1 thou/uL (0.0-0.2); #Eosinphils 0.2 thou/uL (0.0-0.7); #Lymphocytes 2.7 thou/uL (1.20-3.40); #Monocytes 0.5 thou/uL (0.11-0.59); #Neutrophils 2.2 thou/uL (1.40-6.50); %Basophils 1.7 % (0.0-1.0); %Eosinophils 4.1 % (0.0-10.0); %Lymphocytes 46.8 % (21.0-51.0); %Monocytes 8.7 % (0.0-10.0); %Neutrophils 38.9 % (42.0-75.0); Mean Corpuscular HGB CONC 33.1 g/dL (32.0-36.0); Mean Corpuscular Hemoglobin 28.4 pg (27.0-31.0); Mean Corpuscular Volume 85.7 fL (78.0-98.0); Platelet Count 323 thou/uL (130-400); RBC Distribution Width 14.3 % (11.5-14.5); Red Blood Cell (RBC) Count 3.89 mill/uL (4.70-6.10); White Blood Cell (WBC) Count 5.7 thou/uL (4.8-10.8)
[2020-12-21 06:01] LABS: Anion Gap 10 mmol/L (10-20); BUN (Urea Nitrogen) 13 mg/dL (8.4-25.7); Calc. Creatinine Clearance 95 mL/min (70-130); Calcium 9.1 mg/dL (7.8-10.44); Carbon Dioxide 26 mmol/L (23-31); Cardiac Risk 3.7 (Less than 4.5); Chloride 106 mmol/L (98-107); Cholesterol 99 mg/dl (< 200 Desired); Glucose 103 mg/dL (80-115); HDL Cholesterol 27 mg/dL (>60 Neg Risk); LDL Cholesterol, Calculated 46 mg/dL; Potassium 3.6 mmol/L (3.5-5.1); Sodium 138 mmol/L (136-145); Triglycerides 130 mg/dL (Less than 150)
[2020-12-21] MEDS: Metoprolol Tartrate 25 MG TAB PO SCH ×2 (08:37→21:07)
[2020-12-21] MEDS: Aspirin Chewable 81 MG TAB PO SCH (08:37)
[2020-12-21] MEDS: Clopidogrel Bisulfate 75 MG TAB PO SCH (08:37)
[2020-12-21] MEDS: Enoxaparin Sodium 40 MG/0.4 ML SYRINGE SC SCH (08:38)
[2020-12-21] MEDS ORDERED: CEFAZOLIN 2 GM in Premix Bag 1 BAG IVPB SCH (09:00)
[2020-12-21] MEDS: HYDROcodone/Acetaminophen 10/325 mg Tablet PO PRN ×2 (10:24→21:06)
[2020-12-21] MEDS ORDERED: Furosemide 40 MG TAB PO SCH (11:15)
[2020-12-21] MEDS: Sodium Chloride 0.9% 1,000 ML IV SCH (12:16)
[2020-12-21] MEDS: Lorazepam 2 MG/ML VIAL SLOW IVP PRN ×2 (12:21→21:07)
[2020-12-21 15:11] LABS: Hemoglobin A1c 6.1 % (4.0-6.0)
[2020-12-21] MEDS: Rosuvastatin 20 MG TAB PO SCH (21:07)
[2020-12-22] MEDS ORDERED: Morphine 4 MG/ML VIAL SLOW IVP SCH (00:30)
[2020-12-22] MEDS: HYDROcodone/Acetaminophen 10/325 mg Tablet PO PRN (05:24)
[2020-12-22] MEDS: Metoprolol Tartrate 25 MG TAB PO SCH (05:25)
[2020-12-22 06:22] LABS: #Basophils 0.1 thou/uL (0.0-0.2); #Eosinphils 0.2 thou/uL (0.0-0.7); #Lymphocytes 3.1 thou/uL (1.20-3.40); #Monocytes 0.5 thou/uL (0.11-0.59); #Neutrophils 2.6 thou/uL (1.40-6.50); %Basophils 1.3 % (0.0-1.0); %Eosinophils 2.9 % (0.0-10.0); %Lymphocytes 47.2 % (21.0-51.0); %Monocytes 8.3 % (0.0-10.0); %Neutrophils 40.2 % (42.0-75.0); Hemoglobin 11.3 g/dL (14.0-18.0); Mean Corpuscular HGB CONC 33.5 g/dL (32.0-36.0); Mean Corpuscular Hemoglobin 28.9 pg (27.0-31.0); Mean Corpuscular Volume 86.4 fL (78.0-98.0); Mean Platelet Volume 7.2 fL (7.4-10.4); Platelet Count 350 thou/uL (130-400); RBC Distribution Width 14.2 % (11.5-14.5); Red Blood Cell (RBC) Count 3.92 mill/uL (4.70-6.10); White Blood Cell (WBC) Count 6.5 thou/uL (4.8-10.8)
[2020-12-22 06:34] LABS: Anion Gap 11 mmol/L (10-20); BUN (Urea Nitrogen) 13 mg/dL (8.4-25.7); Calc. Creatinine Clearance 92 mL/min (70-130); Calcium 9.1 mg/dL (7.8-10.44); Carbon Dioxide 23 mmol/L (23-31); Chloride 107 mmol/L (98-107); Glucose 105 mg/dL (80-115); Potassium 3.5 mmol/L (3.5-5.1); Sodium 137 mmol/L (136-145)
[2020-12-22 07:50] VITALS: BP 140/61; TEMP 97.8
[2020-12-22] MEDS ORDERED: Furosemide 40 MG TAB PO SCH (09:00)
[2020-12-22] MEDS: Clopidogrel Bisulfate 75 MG TAB PO SCH (10:10)
[2020-12-22] MEDS: Aspirin Chewable 81 MG TAB PO SCH (10:10)
[2020-12-22] MEDS: Enoxaparin Sodium 40 MG/0.4 ML SYRINGE SC SCH (10:10)
[2020-12-22] MEDS: Sodium Chloride 0.9% 1,000 ML IV SCH (10:44)
== END 2020-12-22 11:10 | disposition home or self-care (01) | DRG 68 ==
LOC: ERS 05:53 → 2SE 08:30 → OBSVTOIN 15:55
PROVIDERS: ADMIT Internal Medicine; ATTEND Internal Medicine
DX: I65.22 Occlusion and stenosis of left carotid artery (principal); N17.9 Acute kidney failure, unspecified; I25.810 Atherosclerosis of coronary artery bypass graft(s) without angina pectoris; I50.20 Unspecified systolic (congestive) heart failure; G89.29 Other chronic pain; Z79.82 Long term (current) use of aspirin; Z79.02 Long term (current) use of antithrombotics/antiplatelets; Z79.84 Long term (current) use of oral hypoglycemic drugs; Z95.1 Presence of aortocoronary bypass graft; F41.9 Anxiety disorder, unspecified; F32.9 Major depressive disorder, single episode, unspecified; F43.10 Post-traumatic stress disorder, unspecified; F17.210 Nicotine dependence, cigarettes, uncomplicated; Z82.3 Family history of stroke; Z82.49 Family history of ischemic heart disease and other diseases of the circulatory system; I25.2 Old myocardial infarction; E78.5 Hyperlipidemia, unspecified; I73.9 Peripheral vascular disease, unspecified; I11.0 Hypertensive heart disease with heart failure
CPT/HCPCS: 36415; 36416; 70450; 70496; 70498; 70551; 71045; 78452; 80048; 80053; 80061; 81003; 83036; 83880; 84484; 85025; 87635; 93005; 93017; 93306; 96372; 96374; A9500; G0378; J0153; J0690; J1642; J1650; J2060; J2270; Q9967; U0003; U0005

== ENCOUNTER 2021-01-11 12:38 | Emergency (ER) | payer MEDICARE | END 2021-01-11 15:14 | disposition home or self-care (01) | LOC: ERS 12:38 | DX: F41.9 Anxiety disorder, unspecified (principal); G47.00 Insomnia, unspecified; Z76.0 Encounter for issue of repeat prescription; Z79.82 Long term (current) use of aspirin; Z79.899 Other long term (current) drug therapy; F17.210 Nicotine dependence, cigarettes, uncomplicated; E11.9 Type 2 diabetes mellitus without complications; E78.5 Hyperlipidemia, unspecified; M19.90 Unspecified osteoarthritis, unspecified site; I25.2 Old myocardial infarction | CPT/HCPCS: 99283 ==

== ENCOUNTER 2021-02-05 10:30 | Inpatient (IN) | payer MEDICARE ==
[2021-02-10] MEDS ORDERED: Heparin 5,000 UNITS/ML VIAL ONE (08:01)
[2021-02-10] MEDS ORDERED: Protamine Sulfate 50 MG/5 ML VIAL ONE (08:01)
[2021-02-10] MEDS ORDERED: EPINEPHrine 1 MG/ML AMP ONE (08:04)
[2021-02-10] MEDS ORDERED: Bupivacaine PF 0.5% 30 ML VIAL ONE (08:04)
[2021-02-10] MEDS ORDERED: Midazolam HCl 2 mg/2 ml Vial ONE (09:02)
[2021-02-10] MEDS ORDERED: Dexamethasone 20 MG/5 ML VIAL ONE (09:21)
[2021-02-10] MEDS ORDERED: Vecuronium 10 MG VIAL ONE (09:21)
[2021-02-10] MEDS ORDERED: Ondansetron PF 4 MG/2 ML Vial ONE (09:21)
[2021-02-10] MEDS ORDERED: Lidocaine 1% PF 5 ML VIAL ONE (09:21)
[2021-02-10] MEDS ORDERED: Glycopyrrolate 0.2 MG/ML 5 ML SYRINGE ONE (09:21)
[2021-02-10] MEDS ORDERED: PROPOFOL 200 MG/20 ML VIAL ONE (09:21)
[2021-02-10] MEDS ORDERED: Fentanyl 100 MCG/2 ML VIAL ONE ×2 (09:38→12:13)
[2021-02-10] MEDS ORDERED: Promethazine HCl 25 MG/ML VIAL IM PRN (12:32)
[2021-02-10] MEDS ORDERED: Dextrose 5% in Water 1,000 ML IV PRN (12:32)
[2021-02-10] MEDS ORDERED: Ondansetron PF 4 MG/2 ML Vial IVP PRN (12:32)
[2021-02-10] MEDS ORDERED: Nitroglycerin 50 MG/250 ML BOT 250 ML IVPB PRN (12:32)
[2021-02-10] MEDS ORDERED: Fentanyl 100 MCG/2 ML VIAL SLOW IVP PRN ×3 (12:32→15:15)
[2021-02-10] MEDS ORDERED: HYDROcodone/Acetaminophen 5/325 mg Tablet PO PRN (12:32)
[2021-02-10] MEDS ORDERED: Sodium Chloride 0.9% 1,000 ML IV SCH (12:32)
[2021-02-10] MEDS ORDERED: Acetaminophen 325 MG TAB PO PRN (12:32)
[2021-02-10] MEDS ORDERED: Norepinephrine 8 MG/0.9% NS 250 ML IVPB PRN (12:32)
[2021-02-10] MEDS ORDERED: Dextrose 50% Abboject 50 ML SYRINGE SLOW IVP PRN (12:32)
[2021-02-10 13:29] VITALS: BMI 32.5
[2021-02-10] MEDS: HYDROcodone/Acetaminophen 5/325 mg Tablet PO PRN ×2 (14:18→20:04)
[2021-02-10] MEDS: Metoprolol Tartrate 25 MG TAB PO SCH (20:05)
[2021-02-10] MEDS: Insulin Regular 300 UNITS/3 ML VIAL SC PRN (20:19)
[2021-02-10] MEDS ORDERED: Atorvastatin Calcium 20 MG TAB PO SCH (21:00)
[2021-02-10] MEDS ORDERED: ALPRAZolam 0.5 MG TAB PO SCH (21:00)
[2021-02-11] MEDS: HYDROcodone/Acetaminophen 5/325 mg Tablet PO PRN ×3 (01:02→10:59)
[2021-02-11] MEDS: Insulin Regular 300 UNITS/3 ML VIAL SC PRN (06:05)
[2021-02-11] MEDS: Metoprolol Tartrate 25 MG TAB PO SCH (08:58)
[2021-02-11 08:59] VITALS: BP 143/72
[2021-02-11] MEDS ORDERED: Amlodipine 10 MG TAB PO SCH (09:00)
[2021-02-11] MEDS ORDERED: Furosemide 40 MG TAB PO SCH (09:00)
[2021-02-11] MEDS ORDERED: Aspirin Chewable 81 MG TAB PO SCH (09:00)
[2021-02-11] MEDS ORDERED: Clopidogrel Bisulfate 75 MG TAB PO SCH (09:00)
[2021-02-11] MEDS ORDERED: Lisinopril 5 MG TAB PO SCH (09:00)
[2021-02-11 10:42] VITALS: TEMP 97.8
== END 2021-02-11 10:50 | disposition home or self-care (01) | DRG 39 ==
LOC: SURG A 02-10 07:46 → CCU 02-10 13:18
PROVIDERS: ADMIT Thoracic Surgery (Cardiothoracic Vascular Surgery); ATTEND Thoracic Surgery (Cardiothoracic Vascular Surgery)
PROC: 03CK0ZZ Extirpation of Matter from Right Internal Carotid Artery, Open Approach (ICD-10-PCS; principal; 2021-02-10)
PROC: 03UK0KZ Supplement Right Internal Carotid Artery with Nonautologous Tissue Substitute, Open Approach (ICD-10-PCS; 2021-02-10)
DX: I65.21 Occlusion and stenosis of right carotid artery (principal); Z20.822 Contact with and (suspected) exposure to COVID-19; E11.9 Type 2 diabetes mellitus without complications; E78.5 Hyperlipidemia, unspecified; I10 Essential (primary) hypertension; I25.10 Atherosclerotic heart disease of native coronary artery without angina pectoris; M19.90 Unspecified osteoarthritis, unspecified site; F41.9 Anxiety disorder, unspecified; F32.9 Major depressive disorder, single episode, unspecified; F43.10 Post-traumatic stress disorder, unspecified; Z95.1 Presence of aortocoronary bypass graft; Z98.1 Arthrodesis status; Z87.891 Personal history of nicotine dependence; Z88.8 Allergy status to other drugs, medicaments and biological substances; Z79.82 Long term (current) use of aspirin; Z79.899 Other long term (current) drug therapy
CPT/HCPCS: 36416; 94640; J0171; J0690; J1100; J1642; J1644; J2250; J2405; J2704; J2720; J3010; J7620; S0020

== ENCOUNTER 2021-02-06 16:14 | Outpatient (CLI) | payer MEDICARE ==
[2020-09-16 13:01] LABS: Hemoglobin 15.4 g/dL (13.5-17.5); Mean Corpuscular HGB CONC 31.6 g/dL (32.0-36.0); Mean Corpuscular Hemoglobin 26.6 pg (27.0-33.0); Mean Corpuscular Volume 84.3 fl (81.2-95.1); Mean Platelet Volume 9.6 fl (7.4-10.4); Platelet Count 315 10x3/uL (150-450); RBC Distribution Width 14.4 % (11.5-14.5); Red Blood Cell (RBC) Count 5.79 10x6/uL (4.32-5.72); White Blood Cell (WBC) Count 5.1 10x3/uL (3.5-10.5)
[2020-09-16 13:25] LABS: Anion Gap 15 mmol/L (10-20); BUN (Urea Nitrogen) 9 mg/dL (8.4-25.7); Calc. Creatinine Clearance 0 mL/min (70-130); Calcium 9.6 mg/dL (7.8-10.44); Carbon Dioxide 24 mmol/L (23-31); Chloride 105 mmol/L (98-107); Glucose 127 mg/dL (80-115); Sodium 140 mmol/L (136-145)
[2020-09-17 04:01] LABS: SARS-CoV-2 PCR by NAA Not Detected (NotDetected)
[2021-02-06 16:47] LABS: Hemoglobin 10.8 g/dL (13.5-17.5); Mean Corpuscular HGB CONC 31.1 g/dL (32.0-36.0); Mean Corpuscular Hemoglobin 24.8 pg (27.0-33.0); Mean Corpuscular Volume 79.6 fl (81.2-95.1); Mean Platelet Volume 8.5 fl (7.4-10.4); Platelet Count 419 10x3/uL (150-450); Red Blood Cell (RBC) Count 4.36 10x6/uL (4.32-5.72); White Blood Cell (WBC) Count 7.4 10x3/uL (3.5-10.5)
[2021-02-06 16:57] LABS: Anion Gap 15 mmol/L (10-20); BUN (Urea Nitrogen) 7 mg/dL (8.4-25.7); Calc. Creatinine Clearance 0 mL/min (70-130); Calcium 9.4 mg/dL (7.8-10.44); Carbon Dioxide 25 mmol/L (23-31); Chloride 105 mmol/L (98-107); Glucose 86 mg/dL (80-115); Potassium 3.3 mmol/L (3.5-5.1); Sodium 142 mmol/L (136-145)
== END 2021-02-06 16:15 | disposition home or self-care (01) ==
LOC: LABBT 16:14
PROVIDERS: ATTEND Thoracic Surgery (Cardiothoracic Vascular Surgery)
DX: Z01.812 Encounter for preprocedural laboratory examination (principal); I65.29 Occlusion and stenosis of unspecified carotid artery; Z20.822 Contact with and (suspected) exposure to COVID-19
CPT/HCPCS: 80048 ×2; 85027 ×2; 86850; 86900; 86901; U0003; U0005

== ENCOUNTER 2021-07-29 05:32 | Inpatient (IN) | payer MEDICARE ==
[2021-07-29] MEDS ORDERED: Morphine 4 MG/ML VIAL ONE (06:01)
[2021-07-29] MEDS ORDERED: Ondansetron PF 4 MG/2 ML Vial ONE (06:01)
[2021-07-29 06:21] LABS: #Basophils 0.1 thou/uL (0.0-0.2); #Eosinphils 0.2 thou/uL (0.0-0.7); #Lymphocytes 2.9 thou/uL (1.20-3.40); #Monocytes 0.7 thou/uL (0.11-0.59); #Neutrophils 3.3 thou/uL (1.40-6.50); %Basophils 0.9 % (0.0-1.0); %Eosinophils 3.1 % (0.0-10.0); %Lymphocytes 39.8 % (21.0-51.0); %Monocytes 9.6 % (0.0-10.0); %Neutrophils 46.5 % (42.0-75.0); Hemoglobin 13.9 g/dL (14.0-18.0); Mean Corpuscular HGB CONC 32.6 g/dL (32.0-36.0); Mean Corpuscular Hemoglobin 25.5 pg (27.0-31.0); Mean Corpuscular Volume 78.2 fL (78.0-98.0); Mean Platelet Volume 8.2 fL (7.4-10.4); Platelet Count 232 thou/uL (130-400); RBC Distribution Width 16.3 % (11.5-14.5); Red Blood Cell (RBC) Count 5.48 mill/uL (4.70-6.10); White Blood Cell (WBC) Count 7.2 thou/uL (4.8-10.8)
[2021-07-29 06:29] LABS: ALT (SGPT) 10 U/L (8-55); AST (SGOT) 19 U/L (5-34); Albumin 4.3 g/dL (3.4-4.8); Alkaline Phosphatase 68 U/L (40-110); Anion Gap 9 mmol/L (10-20); BUN (Urea Nitrogen) 18 mg/dL (8.4-25.7); Bilirubin, Total 0.5 mg/dL (0.2-1.2); Calc. Creatinine Clearance 0 mL/min (70-130); Calcium 9.7 mg/dL (7.8-10.44); Carbon Dioxide 27 mmol/L (23-31); Chloride 104 mmol/L (98-107); Globulin 3.8 g/dL (2.4-3.5); Glucose 95 mg/dL (80-115); Potassium 3.7 mmol/L (3.5-5.1); Protein, Total 8.1 g/dL (5.8-8.1); Sodium 136 mmol/L (136-145)
[2021-07-29] MEDS ORDERED: Aspirin Chewable 81 MG TAB ONE (06:53)
[2021-07-29] MEDS ORDERED: Dextrose 5% in Water 1,000 ML IV PRN (10:40)
[2021-07-29] MEDS ORDERED: HumaLOG 300 UNITS/3 ML VIAL SC PRN (10:40)
[2021-07-29] MEDS ORDERED: Dextrose 50% Abboject 50 ML SYRINGE SLOW IVP PRN (10:40)
[2021-07-29] MEDS ORDERED: Acetaminophen 325 MG TAB PO PRN (10:41)
[2021-07-29] MEDS ORDERED: Nicotine 14 MG PATCH TD PRN (10:41)
[2021-07-29] MEDS ORDERED: hydrALAZINE 20 MG/ML VIAL SLOW IVP PRN (10:43)
[2021-07-29] MEDS ORDERED: Electrolyte Replacement Protocol 1 EACH FS SCH (10:45)
[2021-07-29 11:10] VITALS: BMI 29.3
[2021-07-29] MEDS ORDERED: Ondansetron PF 4 MG/2 ML Vial IVP PRN (11:36)
[2021-07-29] MEDS ORDERED: Electrolyte Replacement Protocol FS PRN (11:45)
[2021-07-29] MEDS ORDERED: Clopidogrel Bisulfate 75 MG TAB PO SCH (16:45)
[2021-07-29] MEDS: HYDROcodone/Acetaminophen 10/325 mg Tablet PO PRN (17:05)
[2021-07-29] MEDS: HumaLOG 300 UNITS/3 ML VIAL SC PRN (17:05)
[2021-07-29] MEDS: Rosuvastatin 20 MG TAB PO SCH (20:49)
[2021-07-30 05:54] LABS: #Eosinphils 0.3 thou/uL (0.0-0.7); #Lymphocytes 1.8 thou/uL (1.20-3.40); #Monocytes 0.4 thou/uL (0.11-0.59); #Neutrophils 2.8 thou/uL (1.40-6.50); %Basophils 0.9 % (0.0-1.0); %Eosinophils 4.9 % (0.0-10.0); %Lymphocytes 34.8 % (21.0-51.0); %Monocytes 6.6 % (0.0-10.0); %Neutrophils 52.8 % (42.0-75.0); Hemoglobin 13.7 g/dL (14.0-18.0); Mean Corpuscular HGB CONC 30.9 g/dL (32.0-36.0); Mean Corpuscular Hemoglobin 24.4 pg (27.0-31.0); Mean Corpuscular Volume 78.9 fL (78.0-98.0); Mean Platelet Volume 7.4 fL (7.4-10.4); Platelet Count 345 thou/uL (130-400); RBC Distribution Width 16.2 % (11.5-14.5); Red Blood Cell (RBC) Count 5.61 mill/uL (4.70-6.10); White Blood Cell (WBC) Count 5.2 thou/uL (4.8-10.8)
[2021-07-30 06:13] LABS: Anion Gap 13 mmol/L (10-20); BUN (Urea Nitrogen) 12 mg/dL (8.4-25.7); Calc. Creatinine Clearance 85 mL/min (70-130); Calcium 9.4 mg/dL (7.8-10.44); Carbon Dioxide 23 mmol/L (23-31); Chloride 104 mmol/L (98-107); Glucose 117 mg/dL (80-115); Magnesium 2.1 mg/dL (1.6-2.6); Potassium 3.4 mmol/L (3.5-5.1); Sodium 137 mmol/L (136-145)
[2021-07-30] MEDS ORDERED: Potassium Chloride 20 MEQ TAB PO SCH (07:30)
[2021-07-30] MEDS: HYDROcodone/Acetaminophen 10/325 mg Tablet PO PRN ×2 (08:15→16:15)
[2021-07-30] MEDS: Aspirin 81 mg Enteric Coated Tablet PO SCH (08:15)
[2021-07-30] MEDS: Clopidogrel Bisulfate 75 MG TAB PO SCH (08:16)
[2021-07-30] MEDS: Morphine 4 MG/ML VIAL SLOW IVP PRN ×4 (10:11→23:08)
[2021-07-30] MEDS: HumaLOG 300 UNITS/3 ML VIAL SC PRN (10:38)
[2021-07-30 13:28] LABS: SARS-CoV-2 PCR by NAA Not Detected (NotDetected)
[2021-07-30 13:59] LABS: Potassium 4.4 mmol/L (3.5-5.1)
[2021-07-30] MEDS ORDERED: Metoprolol Tartrate 25 MG TAB PO SCH (17:45)
[2021-07-30] MEDS ORDERED: Sodium Chloride 0.9% 500 ML IV SCH (17:45)
[2021-07-30] MEDS ORDERED: Diclofenac 1% 100 GM GEL TP PRN (18:05)
[2021-07-30] MEDS: Metoprolol Tartrate 25 MG TAB PO SCH (20:56)
[2021-07-30] MEDS: ALPRAZolam 1 MG TAB PO PRN (20:56)
[2021-07-30] MEDS: Rosuvastatin 20 MG TAB PO SCH (20:56)
[2021-07-31 01:05] LABS: Amphetamine Not Detected (NotDetected); Barbiturates Screen Not Detected (NotDetected); Benzodiazepine Screen Detected (NotDetected); Cocaine Metabolite Screen Not Detected (NotDetected); Methadone Not Detected (NotDetected); Methamphetamine Not Detected (NotDetected); Opiate Screen Detected (NotDetected); Oxycodone Screen Not Detected (NotDetected); Phencyclidine (PCP) Not Detected (NotDetected); THC/Cannabinoid Screen Not Detected (NotDetected); Tricyclic Screen Detected (NotDetected)
[2021-07-31 06:08] LABS: Eosinophils 1 % (0-10); Hemoglobin 12.4 g/dL (14.0-18.0); Hypochromia SLIGHT = 6-15 cells (100X) (0-5/hpf); Lymphocytes 41 % (21-51); MDiff Complete? YES; Mean Corpuscular HGB CONC 32.1 g/dL (32.0-36.0); Mean Corpuscular Hemoglobin 25.5 pg (27.0-31.0); Mean Corpuscular Volume 79.3 fL (78.0-98.0); Mean Platelet Volume 7.5 fL (7.4-10.4); Monocytes 11 % (0-10); Neutrophil 47 % (42-75); Platelet Count 290 thou/uL (130-400); Platelet Morphology Comment Appears Adequate; RBC Distribution Width 15.8 % (11.5-14.5); Red Blood Cell (RBC) Count 4.89 mill/uL (4.70-6.10); White Blood Cell (WBC) Count 4.7 thou/uL (4.8-10.8)
[2021-07-31 06:15] LABS: Anion Gap 10 mmol/L (10-20); BUN (Urea Nitrogen) 12 mg/dL (8.4-25.7); Calc. Creatinine Clearance 85 mL/min (70-130); Calcium 8.9 mg/dL (7.8-10.44); Carbon Dioxide 25 mmol/L (23-31); Chloride 105 mmol/L (98-107); Glucose 71 mg/dL (80-115); Potassium 3.5 mmol/L (3.5-5.1); Sodium 136 mmol/L (136-145)
[2021-07-31] MEDS ORDERED: Potassium Chloride 20 MEQ TAB PO SCH ×2 (07:00→09:00)
[2021-07-31] MEDS: Lisinopril 5 MG TAB PO SCH (08:46)
[2021-07-31] MEDS: Clopidogrel Bisulfate 75 MG TAB PO SCH (08:46)
[2021-07-31] MEDS: Metoprolol Tartrate 25 MG TAB PO SCH ×2 (08:46→20:52)
[2021-07-31] MEDS: Furosemide 40 MG TAB PO SCH (08:46)
[2021-07-31] MEDS: Aspirin 81 mg Enteric Coated Tablet PO SCH (08:47)
[2021-07-31] MEDS: Amlodipine 10 MG TAB PO SCH (08:47)
[2021-07-31] MEDS: HYDROcodone/Acetaminophen 10/325 mg Tablet PO PRN ×2 (08:56→16:22)
[2021-07-31] MEDS ORDERED: Folic Acid 1 MG TAB PO SCH (09:45)
[2021-07-31] MEDS: Morphine 4 MG/ML VIAL SLOW IVP PRN ×2 (11:17→20:55)
[2021-07-31] MEDS ORDERED: ISOVUE-370 76%-LOCM 1 ML ONE (11:44)
[2021-07-31] MEDS: HumaLOG 300 UNITS/3 ML VIAL SC PRN (12:58)
[2021-07-31] MEDS: Rosuvastatin 20 MG TAB PO SCH (20:52)
[2021-07-31] MEDS: ALPRAZolam 1 MG TAB PO PRN (20:54)
[2021-08-01] MEDS: HYDROcodone/Acetaminophen 10/325 mg Tablet PO PRN ×2 (04:59→16:37)
[2021-08-01] MEDS: Clopidogrel Bisulfate 75 MG TAB PO SCH (09:09)
[2021-08-01] MEDS: Metoprolol Tartrate 25 MG TAB PO SCH ×2 (09:09→20:34)
[2021-08-01] MEDS: Lisinopril 5 MG TAB PO SCH (09:10)
[2021-08-01] MEDS: Amlodipine 10 MG TAB PO SCH (09:10)
[2021-08-01] MEDS: Furosemide 40 MG TAB PO SCH (09:10)
[2021-08-01] MEDS: Folic Acid 1 MG TAB PO SCH (09:10)
[2021-08-01] MEDS: Aspirin 81 mg Enteric Coated Tablet PO SCH (09:11)
[2021-08-01] MEDS: Morphine 4 MG/ML VIAL SLOW IVP PRN ×2 (09:20→20:34)
[2021-08-01] MEDS ORDERED: Ketorolac Tromethamine 30 MG/ML VIAL IVP PRN (10:33)
[2021-08-01] MEDS ORDERED: Cyclobenzaprine 10 MG TAB PO PRN (10:33)
[2021-08-01] MEDS: Gabapentin 100 MG CAP PO SCH ×3 (13:26→20:55)
[2021-08-01] MEDS: Rosuvastatin 20 MG TAB PO SCH (20:34)
[2021-08-01] MEDS: ALPRAZolam 1 MG TAB PO PRN (20:34)
[2021-08-02] MEDS: Lisinopril 5 MG TAB PO SCH (08:37)
[2021-08-02] MEDS: Furosemide 40 MG TAB PO SCH (08:37)
[2021-08-02] MEDS: Amlodipine 10 MG TAB PO SCH (08:37)
[2021-08-02] MEDS: Metoprolol Tartrate 25 MG TAB PO SCH ×2 (08:37→20:39)
[2021-08-02] MEDS: Clopidogrel Bisulfate 75 MG TAB PO SCH (08:38)
[2021-08-02] MEDS: HYDROcodone/Acetaminophen 10/325 mg Tablet PO PRN ×3 (08:38→20:39)
[2021-08-02] MEDS: Folic Acid 1 MG TAB PO SCH (08:38)
[2021-08-02] MEDS: Aspirin 81 mg Enteric Coated Tablet PO SCH (08:38)
[2021-08-02] MEDS: Gabapentin 100 MG CAP PO SCH ×3 (08:46→20:40)
[2021-08-02] MEDS: Rosuvastatin 20 MG TAB PO SCH (20:39)
[2021-08-02] MEDS: ALPRAZolam 1 MG TAB PO PRN (20:43)
[2021-08-02] MEDS: Morphine 4 MG/ML VIAL SLOW IVP PRN (23:42)
[2021-08-03] MEDS: Lisinopril 5 MG TAB PO SCH (09:10)
[2021-08-03] MEDS: HYDROcodone/Acetaminophen 10/325 mg Tablet PO PRN (09:11)
[2021-08-03] MEDS: Amlodipine 10 MG TAB PO SCH (09:14)
[2021-08-03] MEDS: Folic Acid 1 MG TAB PO SCH (09:15)
[2021-08-03] MEDS: Metoprolol Tartrate 25 MG TAB PO SCH (09:15)
[2021-08-03] MEDS: Aspirin 81 mg Enteric Coated Tablet PO SCH (09:15)
[2021-08-03] MEDS: Clopidogrel Bisulfate 75 MG TAB PO SCH (09:15)
[2021-08-03 12:47] VITALS: BP 111/71; TEMP 98
[2021-08-03] MEDS: Furosemide 40 MG TAB PO SCH (16:19)
[2021-08-03] MEDS: Gabapentin 100 MG CAP PO SCH ×2 (16:20→16:21)
== END 2021-08-03 16:23 | disposition swing bed (61) | DRG 552 ==
LOC: SUATTDRO 05:32 → ERS 05:32 → NEURO 07:14
PROVIDERS: ADMIT Student in an Organized Health Care Education/Training Program; ATTEND Internal Medicine
DX: M48.02 Spinal stenosis, cervical region (principal); I50.22 Chronic systolic (congestive) heart failure; N17.9 Acute kidney failure, unspecified; Z20.822 Contact with and (suspected) exposure to COVID-19; M48.03 Spinal stenosis, cervicothoracic region; M51.36 Other intervertebral disc degeneration, lumbar region; I11.0 Hypertensive heart disease with heart failure; D52.9 Folate deficiency anemia, unspecified; E11.9 Type 2 diabetes mellitus without complications; E27.8 Other specified disorders of adrenal gland; I25.10 Atherosclerotic heart disease of native coronary artery without angina pectoris; F43.10 Post-traumatic stress disorder, unspecified; F41.9 Anxiety disorder, unspecified; F32.A Depression, unspecified; F17.210 Nicotine dependence, cigarettes, uncomplicated; E78.5 Hyperlipidemia, unspecified; I65.23 Occlusion and stenosis of bilateral carotid arteries; J98.09 Other diseases of bronchus, not elsewhere classified; G89.29 Other chronic pain; M19.90 Unspecified osteoarthritis, unspecified site; K37 Unspecified appendicitis; Z95.1 Presence of aortocoronary bypass graft; I25.2 Old myocardial infarction; Z28.21 Immunization not carried out because of patient refusal; Z88.8 Allergy status to other drugs, medicaments and biological substances; Z79.899 Other long term (current) drug therapy; Z79.02 Long term (current) use of antithrombotics/antiplatelets; Z79.84 Long term (current) use of oral hypoglycemic drugs; Z79.82 Long term (current) use of aspirin; Z98.1 Arthrodesis status; Z82.49 Family history of ischemic heart disease and other diseases of the circulatory system; Z86.73 Personal history of transient ischemic attack (TIA), and cerebral infarction without residual deficits
CPT/HCPCS: 36415; 36416; 70450; 70551; 71045; 71260; 72141; 72148; 80048; 80053; 80306; 82607; 82652; 82746; 83605; 83735; 84484; 85025; 93005; 93010; 93306; 93880; 96374; 96375; J1815; J2270; J2405; J7030; Q9966; U0003; U0005

== ENCOUNTER 2021-12-24 15:47 | Observation (INO) | payer MEDICARE ==
[2021-12-24 17:45] VITALS: BMI 30.1
[2021-12-24] MEDS ORDERED: Nitroglycerin 0.4 MG TAB (25 Tab Bottle) SL PRN (17:48)
[2021-12-24] MEDS ORDERED: Ondansetron ODT 4 MG TAB PO PRN (17:53)
[2021-12-24] MEDS ORDERED: Acetaminophen 325 MG TAB PO PRN (17:53)
[2021-12-24] MEDS ORDERED: Nicotine 14 MG PATCH TD SCH (18:00)
[2021-12-24] MEDS: HYDROcodone/Acetaminophen 10/325 mg Tablet PO PRN (18:22)
[2021-12-24] MEDS ORDERED: diphenhydrAMINE 25 MG CAP PO PRN (18:34)
[2021-12-24 18:59] LABS: Troponin I Less than 0.010 ng/mL (< 0.028)
[2021-12-24] MEDS: ALPRAZolam 1 MG TAB PO PRN (20:41)
[2021-12-24 21:30] LABS: SARS-CoV-2 PCR by NAA Not Detected (NotDetected)
[2021-12-25] MEDS: HYDROcodone/Acetaminophen 10/325 mg Tablet PO PRN (02:53)
[2021-12-25 04:35] LABS: Hemoglobin 13.9 g/dL (14.0-18.0); Mean Corpuscular HGB CONC 32.2 g/dL (32.0-36.0); Mean Corpuscular Hemoglobin 27.1 pg (27.0-31.0); Mean Platelet Volume 6.9 fL (7.4-10.4); Platelet Count 303 thou/uL (130-400); RBC Distribution Width 15.2 % (11.5-14.5); Red Blood Cell (RBC) Count 5.12 mill/uL (4.70-6.10); White Blood Cell (WBC) Count 4.7 thou/uL (4.8-10.8)
[2021-12-25] MEDS: ALPRAZolam 1 MG TAB PO PRN (04:39)
[2021-12-25 04:58] LABS: ALT (SGPT) 9 U/L (8-55); AST (SGOT) 18 U/L (5-34); Albumin 3.7 g/dL (3.4-4.8); Alkaline Phosphatase 65 U/L (40-110); Anion Gap 11 mmol/L (10-20); BUN (Urea Nitrogen) 10 mg/dL (8.4-25.7); Bilirubin, Total 0.7 mg/dL (0.2-1.2); Calc. Creatinine Clearance 87 mL/min (70-130); Calcium 9.2 mg/dL (7.8-10.44); Carbon Dioxide 22 mmol/L (23-31); Cardiac Risk 7.4 (Less than 4.5); Chloride 104 mmol/L (98-107); Cholesterol 223 mg/dl (< 200 Desired); Globulin 3.3 g/dL (2.4-3.5); Glucose 98 mg/dL (80-115); HDL Cholesterol 30 mg/dL (>60 Neg Risk); LDL Cholesterol, Calculated 160 mg/dL; Potassium 3.4 mmol/L (3.5-5.1); Sodium 134 mmol/L (136-145); Triglycerides 164 mg/dL (Less than 150)
[2021-12-25 05:10] LABS: Eosinophils 3 % (0-10); Lymphocytes 59 % (21-51); MDiff Complete? YES; Monocytes 10 % (0-10); Neutrophil 25 % (42-75); Reactive Lymphocytes 3 % (0-10)
[2021-12-25] MEDS ORDERED: Furosemide 40 MG TAB PO SCH (09:00)
[2021-12-25] MEDS ORDERED: Aspirin Chewable 81 MG TAB PO SCH (09:00)
[2021-12-25] MEDS ORDERED: Metoprolol Tartrate 25 MG TAB PO SCH (09:00)
[2021-12-25] MEDS ORDERED: Losartan 25 MG TAB PO SCH (09:00)
[2021-12-25] MEDS ORDERED: Lisinopril 5 MG TAB PO SCH (09:00)
[2021-12-25] MEDS ORDERED: Amlodipine 10 MG TAB PO SCH (09:00)
[2021-12-25] MEDS ORDERED: Clopidogrel Bisulfate 75 MG TAB PO SCH (09:00)
[2021-12-25 12:04] VITALS: BP 144/66; TEMP 97.3
[2021-12-25] MEDS ORDERED: ADENOSINE 60 MG/20 ML VIAL ONE (14:27)
== END 2021-12-25 15:55 | disposition home or self-care (01) ==
LOC: 2SW 15:48
PROVIDERS: ADMIT Internal Medicine; ATTEND Internal Medicine
DX: R07.2 Precordial pain (principal); E87.1 Hypo-osmolality and hyponatremia; E87.6 Hypokalemia; E78.5 Hyperlipidemia, unspecified; I10 Essential (primary) hypertension; E11.9 Type 2 diabetes mellitus without complications; G89.29 Other chronic pain; M54.9 Dorsalgia, unspecified; I25.10 Atherosclerotic heart disease of native coronary artery without angina pectoris; F17.210 Nicotine dependence, cigarettes, uncomplicated; M19.90 Unspecified osteoarthritis, unspecified site; Z79.02 Long term (current) use of antithrombotics/antiplatelets; Z79.82 Long term (current) use of aspirin; Z79.84 Long term (current) use of oral hypoglycemic drugs; Z79.899 Other long term (current) drug therapy; Z88.8 Allergy status to other drugs, medicaments and biological substances; Z95.1 Presence of aortocoronary bypass graft; Z20.822 Contact with and (suspected) exposure to COVID-19
CPT/HCPCS: 78452; 80053; 80061; 84484; 85025; 85379; 93017; 94760 ×2; A9500; U0003; U0005; 36415; G0378; J0153

== ENCOUNTER 2022-03-02 21:19 | Observation (INO) | payer MEDICARE ==
[~2022-03-02 21:19] MED LIST changes: -ISOVUE-370 76%-LOCM 1 ML ONE; +Iopamidol-370 76% 500 ML 1 ML ONE
[2022-03-02] MEDS ORDERED: Nitroglycerin 2% Ointment 1 INCH/1 GM Packet ONE (21:46)
[2022-03-02 22:12] LABS: #Eosinphils 0.1 thou/uL (0.0-0.7); #Monocytes 0.4 thou/uL (0.11-0.59); #Neutrophils 3.3 thou/uL (1.40-6.50); %Basophils 0.2 % (0.0-1.0); %Eosinophils 1.3 % (0.0-10.0); %Monocytes 6.6 % (0.0-10.0); %Neutrophils 56.8 % (42.0-75.0); Hemoglobin 15.5 g/dL (14.0-18.0); Mean Corpuscular HGB CONC 33.3 g/dL (32.0-36.0); Mean Corpuscular Hemoglobin 28.6 pg (27.0-31.0); Mean Corpuscular Volume 86.1 fL (78.0-98.0); Mean Platelet Volume 7.2 fL (7.4-10.4); Platelet Count 328 thou/uL (130-400); RBC Distribution Width 15.2 % (11.5-14.5); Red Blood Cell (RBC) Count 5.42 mill/uL (4.70-6.10); White Blood Cell (WBC) Count 5.8 thou/uL (4.8-10.8)
[2022-03-02 22:20] LABS: INR-International Normal Ratio 1.1; PTT 32.4 sec (22.9-36.1); Prothrombin Time 14.3 sec (12.0-14.7)
[2022-03-02 22:26] LABS: D-Dimer Test 0.29 *mcg/mL (0.27-0.43)
[2022-03-02 22:33] LABS: ALT (SGPT) 12 U/L (8-55); AST (SGOT) 18 U/L (5-34); Acetaminophen Less than 10.0 mcg/mL (10.0-30.0); Albumin 4.6 g/dL (3.4-4.8); Alcohol Less than 10 mg/dL (Less than 10); Alkaline Phosphatase 67 U/L (40-110); Anion Gap 13 mmol/L (10-20); BUN (Urea Nitrogen) 8 mg/dL (8.4-25.7); Bilirubin, Total 0.7 mg/dL (0.2-1.2); CRP (Inflammatory) Less than 0.50 mg/dL (= or < 0.5); Calc. Creatinine Clearance 0 mL/min (70-130); Carbon Dioxide 25 mmol/L (23-31); Chloride 103 mmol/L (98-107); Estimated GFR 69; Globulin 3.3 g/dL (2.4-3.5); Glucose 138 mg/dL (80-115); Potassium 3.4 mmol/L (3.5-5.1); Protein, Total 7.9 g/dL (5.8-8.1); Salicylate Less than 8.0 mg/dL (15.0-30.0); Sodium 138 mmol/L (136-145)
[2022-03-02 22:41] LABS: Bacteria/HPF None Seen HPF (None Seen); Bilirubin Negative (Negative); Blood, Urine Trace (Negative); Clarity Clear (Clear); Glucose, Urine (Dipstick) Normal (Negative); Ketone, Urine Negative (Negative); Leukocyte Negative Leu/uL (Negative); Nitrite Negative (Negative); Protein, Urine (Dipstick) Negative (Neg-Trace); RBC/HPF 0-3 HPF (0-3); Specific Gravity, Urine 1.013 (1.002-1.036); Squamous Epithelial None Seen HPF (0-3); Urobilinogen Normal mg/dL (Less than 2); WBC/HPF None Seen HPF (0-3); pH, Urine 6.5 (5.0-9.0)
[2022-03-02 22:50] LABS: Amphetamine Not Detected (NotDetected); Barbiturates Screen Not Detected (NotDetected); Benzodiazepine Screen Not Detected (NotDetected); Cocaine Metabolite Screen Not Detected (NotDetected); Methadone Not Detected (NotDetected); Methamphetamine Not Detected (NotDetected); Opiate Screen Detected (NotDetected); Oxycodone Screen Not Detected (NotDetected); Phencyclidine (PCP) Not Detected (NotDetected); THC/Cannabinoid Screen Not Detected (NotDetected); Tricyclic Screen Detected (NotDetected)
[2022-03-02 23:23] LABS: SARS-CoV-2 NAA Rapid Test Not Detected (NotDetected)
[2022-03-03] MEDS ORDERED: Ketorolac Tromethamine 30 MG/ML VIAL ONE (01:00)
[2022-03-03] MEDS ORDERED: Ketorolac Tromethamine 30 MG/ML VIAL IVP SCH (01:00)
[2022-03-03 01:23] LABS: Lactic Acid 1.8 mmol/L (0.5-2.2)
[2022-03-03 01:31] LABS: Troponin I 0.023 ng/mL (< 0.028)
[2022-03-03] MEDS ORDERED: ALPRAZolam 0.5 MG TAB PO SCH (03:00)
[2022-03-03] MEDS ORDERED: ALPRAZolam 0.25 MG TAB ONE (03:04)
[2022-03-03 05:27] LABS: Troponin I 0.017 ng/mL (< 0.028)
[2022-03-03] MEDS ORDERED: HYDROcodone/Acetaminophen 10/325 mg Tablet ONE (10:30)
[2022-03-03] MEDS: HYDROcodone/Acetaminophen 10/325 mg Tablet PO PRN ×3 (10:31→21:28)
[2022-03-03 11:48] VITALS: BMI 28.1
[2022-03-03] MEDS ORDERED: Aspirin 81 mg Enteric Coated Tablet PO SCH (15:30)
[2022-03-03] MEDS ORDERED: Atorvastatin Calcium 40 MG TAB PO SCH (21:00)
[2022-03-03] MEDS ORDERED: ALPRAZolam 1 MG TAB PO SCH (21:00)
[2022-03-04 05:24] LABS: Cardiac Risk 3.9 (Less than 4.5)
[2022-03-04] MEDS: HYDROcodone/Acetaminophen 10/325 mg Tablet PO PRN ×2 (08:35→13:23)
[2022-03-04] MEDS ORDERED: Amlodipine 10 MG TAB PO SCH (09:00)
[2022-03-04] MEDS ORDERED: Lisinopril 5 MG TAB PO SCH (09:00)
[2022-03-04] MEDS ORDERED: Aspirin 81 mg Enteric Coated Tablet PO SCH (09:00)
[2022-03-04] MEDS ORDERED: Clopidogrel Bisulfate 75 MG TAB PO SCH (09:00)
[2022-03-04] MEDS ORDERED: Metoprolol Tartrate 25 MG TAB PO SCH (09:00)
[2022-03-04 11:48] VITALS: BP 127/60; TEMP 97.5
== END 2022-03-04 16:00 | disposition home or self-care (01) ==
LOC: ERS 21:19 → ERHOLD 23:53 → 2SW 03-03 11:30
PROVIDERS: ADMIT Internal Medicine; ATTEND Internal Medicine
DX: R55 Syncope and collapse (principal); R53.1 Weakness; I25.10 Atherosclerotic heart disease of native coronary artery without angina pectoris; I10 Essential (primary) hypertension; E11.9 Type 2 diabetes mellitus without complications; E87.6 Hypokalemia; I65.22 Occlusion and stenosis of left carotid artery; I67.2 Cerebral atherosclerosis; G89.29 Other chronic pain; M54.50 Low back pain, unspecified; E78.5 Hyperlipidemia, unspecified; Z79.02 Long term (current) use of antithrombotics/antiplatelets; Z79.82 Long term (current) use of aspirin; Z79.84 Long term (current) use of oral hypoglycemic drugs; Z79.899 Other long term (current) drug therapy; Z88.8 Allergy status to other drugs, medicaments and biological substances; Z20.822 Contact with and (suspected) exposure to COVID-19
CPT/HCPCS: 70450; 70496; 70498; 70551; 71045; 80053; 80061; 80306; 80307; 83605 ×2; 84484 ×3; 85025; 85379; 85610; 85730; 86140; 86850; 86900; 86901; 93005; 94760; 95712; 95819; 95957; 99285; U0002; 36415; 81003; 81015; 96374; G0378; J1885; Q9967

== ENCOUNTER 2023-07-27 19:36 | Emergency (ER) | payer OTHER, MEDICARE ==
[~2023-07-27 19:36] MED LIST changes: -Iopamidol-370 76% 500 ML 1 ML ONE; +Iopamidol-370 76% 500 ML MDV (1 ML CHARGE) ONE
[2023-07-27] MEDS ORDERED: Morphine 4 MG/ML VIAL ONE ×2 (20:02→21:30)
[2023-07-27] MEDS ORDERED: Ondansetron PF 4 MG/2 ML Vial ONE (20:02)
[2023-07-27 20:26] LABS: #Basophils 0.1 thou/uL (0.0-0.2); #Eosinphils 0.1 thou/uL (0.0-0.7); #Monocytes 0.6 thou/uL (0.11-0.59); #Neutrophils 1.8 thou/uL (1.40-6.50); %Basophils 1.3 % (0.0-1.0); %Eosinophils 2.4 % (0.0-10.0); %Lymphocytes 54.1 % (21.0-51.0); %Monocytes 10.3 % (0.0-10.0); %Neutrophils 31.7 % (42.0-75.0); Hemoglobin 14.6 g/dL (14.0-18.0); Mean Corpuscular HGB CONC 33.2 g/dL (32.0-36.0); Mean Corpuscular Hemoglobin 29.6 pg (27.0-31.0); Mean Corpuscular Volume 89.1 fl (78.0-98.0); Platelet Count 298 10x3/uL (130-400); RBC Distribution Width 13.3 % (11.5-14.5); Red Blood Cell (RBC) Count 4.94 mill/uL (4.70-6.10); White Blood Cell (WBC) Count 5.5 10x3/uL (4.8-10.8)
[2023-07-27 20:48] LABS: ALT (SGPT) 11 U/L (8-55); AST (SGOT) 19 U/L (5-34); Alkaline Phosphatase 54 U/L (40-110); Anion Gap 10 mmol/L (10-20); BUN (Urea Nitrogen) 12 mg/dL (8.4-25.7); Bilirubin, Total 0.4 mg/dL (0.2-1.2); Calc. Creatinine Clearance 0 mL/min (70-130); Calcium 8.7 mg/dL (7.8-10.44); Carbon Dioxide 22 mmol/L (23-31); Chloride 105 mmol/L (98-107); Estimated GFR 57; Glucose 66 mg/dL (80-115); Potassium 3.6 mmol/L (3.5-5.1); Sodium 133 mmol/L (136-145)
[2023-07-27 20:52] LABS: Troponin I Less than 0.010 ng/mL (< 0.028)
[2023-07-27 20:59] LABS: INR-International Normal Ratio 1.2; PTT 33.8 sec (22.9-36.1); Prothrombin Time 15.2 sec (12.0-14.7)
[2023-07-27] MEDS ORDERED: Ketorolac Tromethamine 30 MG/ML VIAL ONE (22:49)
== END 2023-07-28 00:06 | disposition home or self-care (01) ==
LOC: ERS 19:36
DX: S16.1XXA Strain of muscle, fascia and tendon at neck level, initial encounter (principal); S10.93XA Contusion of unspecified part of neck, initial encounter; S40.011A Contusion of right shoulder, initial encounter; S70.02XA Contusion of left hip, initial encounter; I25.10 Atherosclerotic heart disease of native coronary artery without angina pectoris; I10 Essential (primary) hypertension; E10.51 Type 1 diabetes mellitus with diabetic peripheral angiopathy without gangrene; F17.210 Nicotine dependence, cigarettes, uncomplicated; V89.2XXA Person injured in unspecified motor-vehicle accident, traffic, initial encounter; Y92.410 Unspecified street and highway as the place of occurrence of the external cause; Z79.899 Other long term (current) drug therapy
CPT/HCPCS: 36415; 70450; 71260; 72125; 74177; 80053; 84484; 85025; 85610; 85730; 93005; 96374; 96375; 96376; J1885; J2270; J2405; Q9967